=== PATIENT | female | born 1950 | race Caucasian/White ===

== ENCOUNTER 2021-12-10 11:07 | Emergency (ER) | payer OTHER, SELFPAY ==
[2021-12-10] VITALS (10 sets, daily range): BP systolic 106–160; BP diastolic 71–112; PULSE 51–79; RESP 14–22; TEMP 36.6–36.8; O2SAT 93–97; BMI 26.1
--- NOTE | ~2021-12-10 | CT_ITS ---
EXAMINATION: CT OF THE HEAD WITHOUT CONTRAST CT OF THE CERVICAL SPINE WITHOUT CONTRAST CLINICAL INFORMATION: Pain status post fall. Question loss of consciousness. COMPARISON: None. TECHNIQUE: Contiguous axial imaging was performed from the skullbase to vertex without intravenous administration of contrast. Coronal reformations of the head were obtained. Contiguous axial imaging was then performed from the skull base down to the thoracic inlet. Coronal and sagittal reformations of the cervical spine were obtained. This CT examination was performed using dose optimization techniques as appropriate, variously including the following: *Automated exposure control *Adjustment of mA and/or kV according to patient size (this includes techniques or standardized protocols for targeted exams where dose is matched to indication/reason for exam; i.e. extremities or head) *Use of iterative reconstruction technique DLP: 1036.28 mGy-cm. FINDINGS: CT scan of the head: There is no evidence of acute intracranial hemorrhage or territorial infarction. No abnormal mass-effect or midline shift is seen. Piña to white matter differentiation is well preserved. No extra-axial fluid collections are identified. The ventricles and sulci are mildly enlarged, suggesting involutional changes. There is moderate periventricular and deep white matter low-attenuation seen, consistent with ischemic small vessel disease. The osseous structures and soft tissues are normal. Partial opacification of the posterior ethmoid air cells bilaterally noted. The mastoid air cells and visualized portions of the paranasal sinuses are well-aerated. CT scan of the cervical spine: Normal alignment is seen with no evidence of acute fracture or dislocation. Craniocervical junction and atlantoaxial articulations are intact. Prevertebral soft tissues are normal in thickness. There is moderate degenerative disc disease in the mid and lower cervical spine with disc space narrowing, vertebral endplate spurring, including posterior disc osteophyte complexes and some small cystic changes seen from C4-C5 down to C6-C7. There is minimal grade 1 anterolisthesis of C3-C4 on C5, retrolisthesis of C5 on C6, and anterolisthesis of C7 on T1, likely related to patient positioning and degenerative changes. There is moderate facet arthropathy throughout the cervical spine. Mild biapical lung parenchymal scarring noted. The included soft tissues of the neck and lung apices are otherwise unremarkable. CT/CT cervical spine wo con IMPRESSION: CT scan of the head: -No acute intracranial pathology. -Involutional changes and findings of ischemic small vessel disease noted. -Partial opacification of the ethmoid sinuses. CT scan of the cervical spine: -No evidence of cervical spine fracture or malalignment. -Prominent degenerative disc disease and facet arthropathy, most prominent throughout the mid and lower cervical spine.
--- NOTE | ~2021-12-10 | XR_ITS ---
EXAMINATION: PORTABLE CHEST 1 VIEW CLINICAL INFORMATION: fall, ?syncope . COMPARISON: No recent pertinent prior studies are available for comparison. TECHNIQUE: Portable frontal view of the chest was obtained. FINDINGS: Lungs are hypoexpanded. No focal infiltrate, effusion, edema, or pneumothorax. Central vascular prominence within normal limits for this degree of hypoexpansion. Cardiac silhouette within normal limits for size with mild tortuosity to the aorta. Degenerative changes in the spine and visualized shoulders. XR/XR chest 1V IMPRESSION: Hypoexpanded with chronic appearing changes. No definitive focal airspace disease.
--- NOTE | ~2021-12-10 | XR_ITS ---
EXAMINATION: XR SHOULDER, RIGHT CLINICAL INFORMATION: Fall pain COMPARISON: None TECHNIQUE: Frontal and scapular Y view of the right shoulder. FINDINGS: Anterior subglenoid dislocation of the humeral head. Scapula, clavicle and included ribs are intact. Exam limited by technique. XR/XR shoulder RT min 2V IMPRESSION: Anterior subglenoid dislocation of the shoulder.
--- NOTE | ~2021-12-10 | XR_ITS ---
EXAMINATION: XR SHOULDER, RIGHT CLINICAL INFORMATION: Check placement COMPARISON: Right shoulder films earlier today TECHNIQUE: Two views of the right shoulder. FINDINGS: Humeral head is now relocated into the right glenoid fossa. Degenerative changes are seen but I do not appreciate any acute fracture or dislocation. XR/XR shoulder RT min 2V IMPRESSION: Relocation of the previously dislocated right shoulder. Degenerative changes.
--- NOTE | 2021-12-10 11:19 | ED_ITS ---
HPI - Fall General Chief Complaint: Fall Stated Complaint: R ARM PAIN S/P FALL SATURDAY PER SNF Time Seen by Provider: 12/10/21 11:13 Source: EMS Mode of arrival: EMS Limitations: other (patient is deaf-reads lips/uses sign language, has dementia) History of Present Illness HPI Narrative: 71yo female with a past medical history of anemia, anxiety, depression, bipolar disorder, DM, HLD, HTN, hypothyroidism, dementia, seizures, hearing loss (uses sign language, reads lips) here after a fall. Patient was found at the residential by staff on on her knees after an unwitnessed fall. Patient unable to provide HPI. Patient has been at baseline per staff. Today she started c/o right arm pain prompting her ER visit. No other complaints. Related Data Previous Rx's Medication Instructions Recorded cefuroxime axetil 250 mg tablet 250 mg PO BID #14 tab 12/10/21 Allergies Allergy/AdvReac Type Severity Reaction Status Date / Time Unable to Assess Allergy Verified 12/10/21 11:26 Review of Systems Review of Systems: Yes all other systems are reviewed and are negative Constitutional: Constitutional: Reports no additional constitutional complaints, Denies body ache(s), Denies chills, Denies fever(s), Denies headache(s) and Denies weakness Eyes: Eyes: Reports no additional eye complaints and Denies change in vision ENT: Reports system reviewed and no additional complaints, except as do cumented, Denies dizziness, Denies headache(s), Denies nasal congestion, Denies nasal discharge and Denies neck pain Cardiovascular: Cardiovascular: Reports no additional cardiovascular complaints, Denies chest pain, Denies leg edema and Denies dyspnea Respiratory: Respiratory: Reports no additional respiratory complaints, Denies cough and Denies dyspnea Gastrointestinal: Gastrointestinal: Reports no additional gastrointestinal complaints, Denies abdominal pain, Denies diarrhea, Denies nausea and Denies vomiting Genitourinary: Genitourinary: Reports no additional female genitourinary complaints and Denies urinary incontinence Musculoskeletal: Musculoskeletal: Reports no additional musculoskeletal complaints, Denies back pain, Reports arthralgias, Denies joint swelling, Reports limited range of motion, Denies neck pain, Denies numbness and Denies tingling Integumentary/Breasts: Skin/Breast: Reports system reviewed and no additional complaints, except as docu and Denies rash Neurologic: Reports system reviewed and no additional complaints, except as documented, Denies Abnormal speech present, Reports confusion, Denies dizziness, Denies headache(s), Denies numbness, Denies tingling and Denies weakness Psychiatric: Psychiatric: Reports confusion [facility] Past Medical History Attestation statement: The following information was validated with the patient. Source: old records reviewed and nursing notes reviewed Medical History Anemia Anxiety Bipolar 1 disorder COPD (chronic obstructive pulmonary disease) COVID-19 DDD (degenerative disc disease), lumbar DM (diabetes mellitus) Dyslipidemia GERD (gastroesophageal reflux disease) Hearing loss HTN (hypertension) Hypothyroid Major depressive disorder Seizure disorder TIA (transient ischemic attack) Vascular dementia Surgical History H/O right nephrectomy H/O: hysterectomy History of appendectomy Social History Social History Advance Directives: Yes Advance Directives Information Provided: No Advance Directives on File: No Physical Exam Vital Signs: Vital Signs: Last Vital Signs Temp 98.2 F 12/10/21 13:10 Pulse 79 12/10/21 18:52 Resp 22 H 12/10/21 18:52 BP 144/79 H 12/10/21 18:52 Pulse Ox 93 12/10/21 18:52 Oxygen Flow Rate 2 12/10/21 15:56 BMI result Body Mass Index 26.1 Const: General: cooperative, healthy appearing, comfortable, no acute distress and confusion Orientation/consciousness: confusion Limitations: altered mental status HEENT: Head: Yes normal to inspection Ears: hearing grossly normal bilaterally General nose exam: Normal external nose present Face and sinus: Yes normal facial exam Mouth: Normal oral and palatal mucosa present Throat: Yes posterior oropharynx normal Eyes: General: appearance normal, both eyes and all related structures Pupils: Equal, round and reactive pupils present Neck: Neck: Yes normal visual inspection, Yes full ROM, Yes no lymphadenopathy and Yes no meningeal signs Chest: Chest palpation & inspection: normal inspection of the chest Resp: Effort & Inspection: normal respiratory effort Auscultation: clear to auscultation bilaterally Cardio: Rate: regular rate Rhythm: regular rhythm Peripheral pulses: Peripheral pulses 2+ throughout GI: Inspection: Yes normal to inspection Palpation (GI): Soft to palpation and nontender Auscultation: normal bowel sounds Back/Spine/Pelvis: Thoracic/Lumbar Spine: thoracic and lumbar spine normal to inspection Skin: General skin exam: no rashes or lesions noted Neuro: General: no meningeal signs, no focal motor deficits, normal sensation to monofilament, confusion and Unable to assess gait Cranial nerves: Yes Equal, round and reactive pupils present Speech: No Abnormal speech present Gait exam (Neuro): Unable to assess gait Motor exam (neuro): 5/5 motor strength present throughout Sensory Exam: Normal double simultaneous stimulation for sensation Extrem: Other: +deformity, swelling, tenderness to right shoulder +radial/axially/ulnar pulse General: Yes normal to inspection Course Course Course Narrative: 71Year old female coming from a residential with right shoulder pain after a fall which occurred on . Per nursing staff they are unsure why the patient fell. I spoke to the healthcare proxy her sister Ilana. She tells me the patient does tend to lose her balance and fall quite often. She is also unsure why the patient fell. Therefore due to unknown mechanism injury will check labs, EKG, CT head and neck. Patient has a deformity with swelling and tenderness to the right shoulder. Question proximal humeral fracture versus shoulder dislocation. Will obtain x-ray Reevaluation(s) Reevaluation #1: X-ray shows right shoulder dislocation. Will attempt manual reduction the bedside. If unsuccessful. Patient will require conscious sedation. I spoke to the healthcare proxy (Ilana)who was agreeable to this Time: 11:45 Reevaluation #2: CT head and neck are negative. See procedure note for conscious sedation. Patient healthcare proxy was previously consented. This was communicated through the vault mechanic to the patient at the bedside. Post reduction films ordered. Patient placed in a sling Time: 15:30 Reevaluation #3: UA is consistent with a UTI. Post reduction x-ray show satisfactory reduction of the shoulder dislocation. Will send patient back to [facility] on oral antibiotics for UTI in his sling for her shoulder dislocation. Time: 18:57 Procedures Procedure Narrative Procedure Narrative: Sling Orthopedic Joint Reduction Joint #1: Time Out Performed: Yes Side: right Joint Reduction Location: shoulder Analgesia: procedural sedation and hematoma block (attempted first with 20ml 2% lidocaine) Local Anesthesia: lidocaine 2% Amount of anesthesic used (mL): 20 Shoulder Technique Used (if applicable): external rotation Technique used: direct manipulation Post-reduction neuro exam: intact Post-reduction vascular: intact Post Reduction X-Ray Obtained: Yes Post Reduction X-Ray Results: reduced Splint Applied: Yes Patient Tolerated Procedure: well Additional Comments: Sling applied MDM - Fall Medical Records Attestation: I reviewed the patient's medical records. Lab Data Attestation: I reviewed the patient's lab results. Result diagrams: 12/10/21 11:54 12/10/21 11:54 Labs: Lab Results 12/10/21 12/10/21 12/10/21 Range/Units 11:54 11:54 11:54 WBC 11.4 H (4.8-10.8) X10*3/uL RBC 4.09 L (4.20-5.50) X10*6/uL Hgb 11.9 L (12.0-16.0) g/dl Hct 35.3 L (37.0-47.0) % MCV 86.3 (80.0-98.0) fL MCH 29.1 (27.0-33.0) pg MCHC 33.7 (31.0-35.0) g/dl RDW 14.3 (11.0-16.0) % Plt Count 215 (160-400) X10*3/uL MPV 10.7 (9.4-12.3) fL Immature Gran % (Auto) 0.4 (0.0-0.4) % Neut % (Auto) 80.7 H (45-73) % Lymph % (Auto) 8.3 L (20-40) % [place] % (Auto) 10.0 (2-11) % Eos % (Auto) 0.2 (0-4) % Baso % (Auto) 0.4 (0-2) % Lymph # (Auto) 1.0 L (1.2-4.9) X10*3/uL [place] # (Auto) 1.1 (0.1-1.2) X10*3/uL Eos # (Auto) 0.0 (0.0-0.4) X10*3/uL Baso # (Auto) 0.0 (0.0-0.2) X10*3/uL Abs Immat Gran (auto) 0.04 H (0.00-0.03) X10*3/uL Absolute Neuts (auto) 9.2 H (2.0-8.3) x10*3/uL Absolute Nucleated RBC 0.000 (0.0-0.012) X10*3/uL Nucleated RBC % (auto) 0.0 (0.0-0.2) /100WBC Sodium 138 (135-145) mmol/L Potassium 3.4 (3.3-5.1) mmol/L Chloride 97 (96-108) mmol/L Carbon Dioxide 26 (22-29) mmol/L Anion Gap 18 (12-20) BUN 19 H (9-16) mg/dL Creatinine 1.21 (0.5-1.4) mg/dL Estim Creat Clear Calc 41.2 Estimated GFR 44 Random Glucose 213 H (60-115) mg/dL Calcium 10.1 (8.4-10.2) mg/dL Magnesium 1.8 (1.6-2.6) mg/dL Troponin I High Sens 4.5 (<3.5-17.0) ng/L Urine Color Urine Appearance Urine pH (5.0-8.0) Ur Specific [place] (1.005-1.025) Urine Protein (NEG-TRACE) MG/DL Urine Glucose (UA) (NEG) MG/DL Urine Ketones (NEG) MG/DL Urine Blood (NEG) Urine Nitrite (NEG) Ur Leukocyte Esterase (NEG) Urine RBC (0) /HPF Urine WBC (0-4) /HPF Urine WBC Clumps Ur Squamous Epith Cells /LPF Urine Bacteria /LPF Hyaline Casts /LPF Urine Mucus /LPF 12/10/21 Range/Units 17:31 WBC (4.8-10.8) X10*3/uL RBC (4.20-5.50) X10*6/uL Hgb (12.0-16.0) g/dl Hct (37.0-47.0) % MCV (80.0-98.0) fL MCH (27.0-33.0) pg MCHC (31.0-35.0) g/dl RDW (11.0-16.0) % Plt Count (160-400) X10*3/uL MPV (9.4-12.3) fL Immature Gran % (Auto) (0.0-0.4) % Neut % (Auto) (45-73) % Lymph % (Auto) (20-40) % [place] % (Auto) (2-11) % Eos % (Auto) (0-4) % Baso % (Auto) (0-2) % Lymph # (Auto) (1.2-4.9) X10*3/uL [place] # (Auto) (0.1-1.2) X10*3/uL Eos # (Auto) (0.0-0.4) X10*3/uL Baso # (Auto) (0.0-0.2) X10*3/uL Abs Immat Gran (auto) (0.00-0.03) X10*3/uL Absolute Neuts (auto) (2.0-8.3) x10*3/uL Absolute Nucleated RBC (0.0-0.012) X10*3/uL Nucleated RBC % (auto) (0.0-0.2) /100WBC Sodium (135-145) mmol/L Potassium (3.3-5.1) mmol/L Chloride (96-108) mmol/L Carbon Dioxide (22-29) mmol/L Anion Gap (12-20) BUN (9-16) mg/dL Creatinine (0.5-1.4) mg/dL Estim Creat Clear Calc Estimated GFR Random Glucose (60-115) mg/dL Calcium (8.4-10.2) mg/dL Magnesium (1.6-2.6) mg/dL Troponin I High Sens (<3.5-17.0) ng/L Urine Color YELLOW Urine Appearance CLEAR Urine pH 6.0 (5.0-8.0) Ur Specific [place] 1.020 (1.005-1.025) Urine Protein 1+ H (NEG-TRACE) MG/DL Urine Glucose (UA) NEG (NEG) MG/DL Urine Ketones NEG (NEG) MG/DL Urine Blood TRACE (NEG) Urine Nitrite NEG (NEG) Ur Leukocyte Esterase 2+ H (NEG) Urine RBC 1-4 (0) /HPF Urine WBC 15-29 H (0-4) /HPF Urine WBC Clumps NOTED Ur Squamous Epith Cells 2+ /LPF Urine Bacteria 1+ /LPF Hyaline Casts 0-2 /LPF Urine Mucus TRACE /LPF Imaging Data shoulder x-ray: Attestation: I personally reviewed and interpreted this imaging study as follows: Radiologist's impression: FINDINGS: Anterior subglenoid dislocation of the humeral head. Scapula, clavicle and included ribs are intact. Exam limited by technique.? XR/XR shoulder RT min 2V IMPRESSION: Anterior subglenoid dislocation of the shoulder. Ct head/cervical spine: Attestation: I personally reviewed and interpreted this imaging study as follows: Radiologist's impression: FINDINGS: CT scan of the head: There is no evidence of acute intracranial hemorrhage or territorial infarction. No abnormal mass-effect or midline shift is seen. Piña to white matter differentiation is well preserved. No extra-axial fluid collections are identified. The ventricles and sulci are mildly enlarged, suggesting involutional changes. There is moderate periventricular and deep white matter low-attenuation seen, consistent with ischemic small vessel disease. The osseous structures and soft tissues are normal. Partial opacification of the posterior ethmoid air cells bilaterally noted. The mastoid air cells and visualized portions of the paranasal sinuses are well-aerated. CT scan of the cervical spine: Normal alignment is seen with no evidence of acute fracture or dislocation. Craniocervical junction and atlantoaxial articulations are intact. Prevertebral soft tissues are normal in thickness. There is moderate degenerative disc disease in the mid and lower cervical spine with disc space narrowing, vertebral endplate spurring, including posterior disc osteophyte complexes and some small cystic changes seen from C4-C5 down to C6-C7. There is minimal grade 1 anterolisthesis of C3-C4 on C5, retrolisthesis of C5 on C6, and anterolisthesis of C7 on T1, likely related to patient positioning and degenerative changes. There is moderate facet arthropathy throughout the cervical spine. Mild biapical lung parenchymal scarring noted. The included soft tissues of the neck and lung apices are otherwise unremarkable. ? CT/CT cervical spine wo con IMPRESSION: CT scan of the head: -No acute intracranial pathology. -Involutional changes and findings of ischemic small vessel disease noted. -Partial opacification of the ethmoid sinuses. ? CT scan of the cervical spine: -No evidence of cervical spine fracture or malalignment. -Prominent degenerative disc disease and facet arthropathy, most prominent throughout the mid and lower cervical spine. ? shoulder xray-post reduction: Attestation: I personally reviewed and interpreted this imaging study as follows: Radiologist's impression: FINDINGS: Humeral head is now relocated into the right glenoid fossa. Degenerative changes are seen but I do not appreciate any acute fracture or dislocation.? XR/XR shoulder RT min 2V IMPRESSION: Relocation of the previously dislocated right shoulder. Degenerative changes. Chest x-ray: Attestation: I personally reviewed and interpreted this imaging study as follows: Radiologist's impression: [address] [address] XRay Report Signed Patient: Lazara Rome MR#: [id number] : 1950 Acct:[id number] Age/Sex: 71 / F ADM Date: 12/10/21 Loc: HO.ED Attending Dr: Ordering Physician: Rosalinda Carreon NP Date of Service: 12/10/21 Procedure(s): XR chest 1V Accession Number(s): [id number] cc: Rosalinda Carreon NP~ EXAMINATION: PORTABLE CHEST 1 VIEW CLINICAL INFORMATION: fall, ?syncope . COMPARISON: No recent pertinent prior studies are available for comparison. TECHNIQUE: Portable frontal view of the chest was obtained. FINDINGS: Lungs are hypoexpanded. No focal infiltrate, effusion, edema, or pneumothorax. Central vascular prominence within normal limits for this degree of hypoexpansion. Cardiac silhouette within normal limits for size with mild tortuosity to the aorta. Degenerative changes in the spine and visualized shoulders. XR/XR chest 1V IMPRESSION: Hypoexpanded with chronic appearing changes. No definitive focal airspace disease. ? ECG Data Attestation: I personally reviewed and interpreted this ECG as follows: ECG interpretation date: 12/10/21 ECG interpretation time: 12:49 Interpretation: SB with 1st degree HB, normal qrs, normal qt Critical Care Time Critical Care Time Critical Care Time: Yes Total Critical Care Time: 60 Attestation: Reduction at the bedside, discussion with family and patient multiple times Discharge Plan Discharge Clinical Impression: Dislocation of shoulder region, Acute UTI Patient Disposition: er [facility] Instructions: Shoulder Dislocation (ED), Urinary Tract Infection in Older Adults (ED) Additional Instructions: Sling during the day Tylenol for pain Patient given first dose of antibiotic in the emergency department Prescriptions: New cefuroxime axetil 250 mg tablet 250 mg PO BID Qty: 14 0RF Referrals: Rober Diane MD [Physician] - 1 week Hortencia Johnson MD [Primary Care Provider] - 5 days
--- NOTE | 2021-12-10 11:30 | ECG_ITS ---
Test Reason : GENERAL MEDICAL Blood Pressure : / mmHG Vent. Rate : 052 BPM Atrial Rate : 052 BPM P-R Int : 228 ms QRS Dur : 070 ms QT Int : 484 ms P-R-T Axes : 006 -06 060 degrees QTc Int : 450 ms Sinus bradycardia with 1st degree A-V block Minimal voltage criteria for LVH, may be normal variant ( R in aVL ) Nonspecific T wave abnormality Abnormal ECG No previous ECGs available Referred By: Rosalinda Carreon Electronically Signed By:Laci Thomson
[2021-12-10 11:58] LABS: MANUAL DIFF FLAG NO
[2021-12-10 12:01] LABS: Basophils Percent Auto 0.4 % (0-2); Eosinophils Percent Auto 0.2 % (0-4); Hematocrit 35.3 % (37.0-47.0); Hemoglobin 11.9 g/dl (12.0-16.0); Imm Gran Abs Auto 0.04 X10*3/uL (0.00-0.03); Imm Gran Pct Auto 0.4 % (0.0-0.4); Lymphocytes Percent Auto 8.3 % (20-40); Mean Corpuscular HGB Conc 33.7 g/dl (31.0-35.0); Mean Corpuscular Hemoglobin 29.1 pg (27.0-33.0); Mean Corpuscular Volume 86.3 fL (80.0-98.0); Mean Platelet Volume 10.7 fL (9.4-12.3); Monocytes Absolute Auto 1.1 X10*3/uL (0.1-1.2); Neutrophils Absolute Auto 9.2 x10*3/uL (2.0-8.3); Neutrophils Percent Auto 80.7 % (45-73); Platelet Count 215 X10*3/uL (160-400); Red Blood Count 4.09 X10*6/uL (4.20-5.50); Red Cell Distribution Width 14.3 % (11.0-16.0); White Blood Count 11.4 X10*3/uL (4.8-10.8)
[2021-12-10 12:16] LABS: Anion Gap 18 (12-20); Blood Urea Nitrogen 19 mg/dL (9-16); Calcium 10.1 mg/dL (8.4-10.2); Carbon Dioxide 26 mmol/L (22-29); Chloride 97 mmol/L (96-108); Creatinine Clr Calc Pharmacy 41.2; Estimated Glomerular Filt Rate 44; Glucose Random 213 mg/dL (60-115); Magnesium 1.8 mg/dL (1.6-2.6); Potassium 3.4 mmol/L (3.3-5.1); Sodium 138 mmol/L (135-145)
[2021-12-10 12:20] LABS: Troponin-I High Sensitivity 4.5 ng/L (<3.5-17.0)
[2021-12-10] MEDS: propofoL 200 MG/20 ML VIAL 60 MG IVPUSH (16:01)
[2021-12-10 17:37] LABS: Appearance Urine CLEAR; Color Urine YELLOW; Glucose Urine UA NEG (NEG); Leukocyte Esterase Urine 2+ (NEG); Nitrite Urine NEG (NEG); UACC Culture Trigger YES; Urine Blood TRACE (NEG); Urine Ketones NEG (NEG); Urine Protein 1+ MG/DL (NEG-TRACE)
[2021-12-10 17:53] LABS: Bacteria Urine 1+ /LPF; Hyaline Casts Urine 0-2 /LPF; Mucus Urine TRACE /LPF; Squamous Epithelial Cell Urine 2+ /LPF; WBC Clumps Urine NOTED
== END 2021-12-10 20:59 | disposition skilled nursing facility (03) ==
PROVIDERS: Nurse Practitioner Family; Emergency Provider Emergency Medicine; PCP Internal Medicine
DX: S43.004A Unspecified dislocation of right shoulder joint, initial encounter (principal); M79.601 Pain in right arm; M54.2 Cervicalgia; R07.89 Other chest pain; F33.1 Major depressive disorder, recurrent, moderate; I10 Essential (primary) hypertension; W01.0XXA Fall on same level from slipping, tripping and stumbling without subsequent striking against object, initial encounter; Y93.9 Activity, unspecified; Y92.129 Unspecified place in nursing home as the place of occurrence of the external cause; Y99.9 Unspecified external cause status; Z79.899 Other long term (current) drug therapy
CPT/HCPCS: 23655; 36415; 70450; 71045; 72125; 73030; 80048; 81001; 83735; 84484; 85025; 87086; 93005; 96374; 99284; 99291

== ENCOUNTER 2021-12-15 14:45 | Inpatient (IN) | payer OTHER, SELFPAY ==
--- NOTE | ~2021-12-15 | CT_ITS ---
EXAMINATION: CT HEAD/BRAIN WITHOUT CONTRAST CLINICAL INFORMATION: Falls COMPARISON: December 10, 2021 TECHNIQUE: CT scanning from base of skull to vertex performed without IV contrast administration. This CT examination was performed using dose optimization techniques as appropriate, variously including the following: *Automated exposure control *Adjustment of mA and/or kV according to patient size (this includes techniques or standardized protocols for targeted exams where dose is matched to indication/reason for exam; i.e. extremities or head) *Use of iterative reconstruction technique DLP: 669 mGy-cm. FINDINGS: The ventricles, sulci, and cisterns appear unremarkable. No abnormal extra-axial fluid collection or intracranial hemorrhage is seen. No significant mass effect or midline structure shift is evident. There is a large amount of periventricular white matter low density present consistent with microangiopathy. Visualized paranasal sinuses and mastoid air cells unremarkable. CT/CT head/brain wo con IMPRESSION: No acute intracranial abnormality. 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 EXAMINATION: CT OF THE CERVICAL SPINE CLINICAL INFORMATION: Fall COMPARISON: December 10, 2021. TECHNIQUE: Thin helical images with sagittal and coronal reformats. This CT examination was performed using dose optimization techniques as appropriate, variously including the following: *Automated exposure control *Adjustment of mA and/or kV according to patient size (this includes techniques or standardized protocols for targeted exams where dose is matched to indication/reason for exam; i.e. extremities or head) *Use of iterative reconstruction technique DOSE: DLP 369 mGy-cm FINDINGS: No abnormal prevertebral soft tissue swelling is seen. Paraspinal muscle fat planes are maintained. No acute cervical spine fracture is noted. There is cervical spondylosis with facet arthropathy bilaterally C3-C7. Temporomandibular joints appear unremarkable. Pterygoid plates intact. Visualized paranasal sinuses and mastoid air cells unremarkable. The lung apices are clear. IMPRESSION: Cervical spondylosis without acute fracture identified.
--- NOTE | ~2021-12-15 | XR_ITS ---
EXAMINATION: XR CHEST CLINICAL INFORMATION: Falls COMPARISON: December 10, 2021 TECHNIQUE: AP portable view of the chest was obtained. FINDINGS: No significant abnormality is noted involving the heart, lungs, mediastinum, bony thorax or soft tissues. XR/XR chest 1V IMPRESSION: No acute disease.
--- NOTE | ~2021-12-15 | CT_ITS ---
EXAMINATION: CT HEAD/BRAIN WITHOUT CONTRAST CLINICAL INFORMATION: Falls COMPARISON: December 10, 2021 TECHNIQUE: CT scanning from base of skull to vertex performed without IV contrast administration. This CT examination was performed using dose optimization techniques as appropriate, variously including the following: *Automated exposure control *Adjustment of mA and/or kV according to patient size (this includes techniques or standardized protocols for targeted exams where dose is matched to indication/reason for exam; i.e. extremities or head) *Use of iterative reconstruction technique DLP: 669 mGy-cm. FINDINGS: The ventricles, sulci, and cisterns appear unremarkable. No abnormal extra-axial fluid collection or intracranial hemorrhage is seen. No significant mass effect or midline structure shift is evident. There is a large amount of periventricular white matter low density present consistent with microangiopathy. Visualized paranasal sinuses and mastoid air cells unremarkable. CT/CT cervical spine wo con IMPRESSION: No acute intracranial abnormality. 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 EXAMINATION: CT OF THE CERVICAL SPINE CLINICAL INFORMATION: Fall COMPARISON: December 10, 2021. TECHNIQUE: Thin helical images with sagittal and coronal reformats. This CT examination was performed using dose optimization techniques as appropriate, variously including the following: *Automated exposure control *Adjustment of mA and/or kV according to patient size (this includes techniques or standardized protocols for targeted exams where dose is matched to indication/reason for exam; i.e. extremities or head) *Use of iterative reconstruction technique DOSE: DLP 369 mGy-cm FINDINGS: No abnormal prevertebral soft tissue swelling is seen. Paraspinal muscle fat planes are maintained. No acute cervical spine fracture is noted. There is cervical spondylosis with facet arthropathy bilaterally C3-C7. Temporomandibular joints appear unremarkable. Pterygoid plates intact. Visualized paranasal sinuses and mastoid air cells unremarkable. The lung apices are clear. IMPRESSION: Cervical spondylosis without acute fracture identified.
--- NOTE | 2021-12-15 14:54 | ED_ITS ---
HPI - Fall General Chief Complaint: Fall Stated Complaint: fall, neck/head pain Time Seen by Provider: 12/15/21 14:53 Source: patient Mode of arrival: EMS Limitations: other (vascular dementia) History of Present Illness HPI Narrative: seen 12/10 for uwitnessed fall underwent conscious sedation for R shoulder dislocation sent back to [facility] on cefuroxime 250mg BID today staff reportedly saw her standing up went to use walker fell backwards and hit her head - patient states she doesn't remember the events. Notes show her BP has been lower and they have been lowering her metoprolol to 25mg BID from 100 m etoprolol BID and also her losartan 50mg/HCTZ 12.5mg - a note states her BP has been low and they haven't been able to get a standing BP on her. Frequent falls is listed over the past couple of weeks. Not always compliant with care is what our RN was told over the phone by RN at facility MD complaint: fall Onset (ago): minute(s) Fall from: standing (with walker) Fall witnessed: yes, by living facility staff Place fall occurred: [facility] Loss of consciousness: none Prolonged down time: no Symptoms prior to fall: other (patient states she doesn't remember) Context: other (stood up and fell backwards) Location of injury: head Severity: mild Quality: aching Associated symptoms (after fall): headache Related Data Previous Rx's Medication Instructions Recorded cefuroxime axetil 250 mg tablet 250 mg PO BID #14 tab 12/10/21 Allergies Allergy/AdvReac Type Severity Reaction Status Date / Time No Known Allergies Allergy Verified 12/15/21 15:20 Review of Systems Review of Systems: ROS unable to be obtained due to altered mental status [facility] Past Medical History Source: old records reviewed Medical History Anemia Anxiety Bipolar 1 disorder COPD (chronic obstructive pulmonary disease) COVID-19 DDD (degenerative disc disease), lumbar DM (diabetes mellitus) Dyslipidemia GERD (gastroesophageal reflux disease) Hearing loss HTN (hypertension) Hypothyroid Major depressive disorder Seizure disorder TIA (transient ischemic attack) Vascular dementia Surgical History H/O right nephrectomy H/O: hysterectomy History of appendectomy Social History Social History Patient Tobacco Use Status: Tobacco use Unknown Advance Directives: No Advance Directives Information Provided: No Physical Exam Vital Signs: Vital Signs: Last Vital Signs Temp 97.5 F 12/15/21 15:09 Pulse 58 12/15/21 15:09 Resp 16 12/15/21 15:09 BP 124/70 12/15/21 15:09 Pulse Ox 95 12/15/21 15:09 BMI result Body Mass Index 27.3 Appearance: Alert. Oriented X1. No acute distress. Eyes: Pupils equal, round and reactive to light. ENT: Pharynx normal. Neck: Normal inspection. Neck supple. CVS: Normal heart rate and rhythm. Pulses normal. Respiratory: No respiratory distress. Breath sounds normal. Abdomen: Soft and nontender. Skin: Skin warm and dry. Normal skin color. Normal skin turgor. Extremities: No lower extremity edema. no pain in hips with ROM testing Neuro: Oriented X 1. No motor deficit. No sensory deficit. Course Course Course Narrative: signed out to Dr. Shukla pending workup MDM - Fall MDM Narrative Medical decision making narrative: 71 yo female with hx of vascular dementia, bipolar, HTN, HLD, DM, hypothyroidism, seizures, deaf - reads lips here with frequent falls comes in with c/o another fall today stood up and fell hitting head and fell backwards. At this time will need CT head/cervical spine. Denies injuries anywhere. The notes from SNF report low BPs ?orthostatic hypotension. At this time EKG, labs, troponin, imaging ordered. Dispo per results and findings. ECG Data Attestation: I personally reviewed and interpreted this ECG as follows: ECG interpretation date: 12/15/21 ECG interpretation time: 15:51 Interpretation: Rate:56 Rhythm: sinus bradycardia 1st degree AVB Tracy: left Normal P waves. Normal VAIBHAV. Normal QRS complex. ST T wave : nonspecific I and aVL, no DARIO qTC: normal prior studies: no acute ischemia The study has been interpreted contemporaneously by me. . Discharge Plan Discharge Clinical Impression: Falls frequently Patient Disposition: Still a Patient Prescriptions: No Action cefuroxime axetil 250 mg tablet 250 mg PO BID Qty: 14 0RF
--- NOTE | 2021-12-15 15:08 | ECG_ITS ---
Test Reason : FALL Blood Pressure : / mmHG Vent. Rate : 056 BPM Atrial Rate : 056 BPM P-R Int : 256 ms QRS Dur : 072 ms QT Int : 452 ms P-R-T Axes : 028 -04 096 degrees QTc Int : 436 ms Sinus bradycardia with 1st degree A-V block Abnormal QRS-T angle, consider primary T wave abnormality Abnormal ECG When compared with ECG of 10-DEC-2021 12:49, No significant change was found Referred By: Marely Angelo Electronically Signed By:Laci Thomson
[2021-12-15 15:09] VITALS: BP 124/70; PULSE 58; RESP 16; TEMP 36.4; O2SAT 95
--- NOTE | 2021-12-15 15:09 | PC.NURSE ---
this rn calling 3rd floor [facility] in [place]. tereza RN states that patient doesn't sign but can write and read lips. still has difficulty communicating d/t dementia. Duy RN states baseline is non-verbal, ambulates with walker, difficulty complying, no unilat deficit or gaze. fall today was backwards, head strike to floor. no difficulty eating/drinking. takes pills whole. increased falls lately, aprox every other day. last BP was 106/64
[2021-12-15 15:21] VITALS: BP 110/72; PULSE 60; BMI 27.3
[2021-12-15] MEDS: 0.9 % Sodium Chloride 1,000 ML 999 ML IVCONT ×2 (16:19→20:04)
[2021-12-15 16:29] LABS: MANUAL DIFF FLAG NO
[2021-12-15 16:32] LABS: Basophils Absolute Auto 0.1 X10*3/uL (0.0-0.2); Basophils Percent Auto 0.9 % (0-2); Eosinophils Absolute Auto 0.2 X10*3/uL (0.0-0.4); Eosinophils Percent Auto 2.3 % (0-4); Hematocrit 31.9 % (37.0-47.0); Hemoglobin 10.4 g/dl (12.0-16.0); Imm Gran Abs Auto 0.03 X10*3/uL (0.00-0.03); Imm Gran Pct Auto 0.3 % (0.0-0.4); Lymphocytes Absolute Auto 1.4 X10*3/uL (1.2-4.9); Lymphocytes Percent Auto 15.2 % (20-40); Mean Corpuscular HGB Conc 32.6 g/dl (31.0-35.0); Mean Corpuscular Hemoglobin 29.1 pg (27.0-33.0); Mean Corpuscular Volume 89.4 fL (80.0-98.0); Mean Platelet Volume 10.2 fL (9.4-12.3); Monocytes Absolute Auto 0.6 X10*3/uL (0.1-1.2); Monocytes Percent Auto 6.8 % (2-11); Neutrophils Percent Auto 74.5 % (45-73); Platelet Count 249 X10*3/uL (160-400); Red Blood Count 3.57 X10*6/uL (4.20-5.50); Red Cell Distribution Width 14.2 % (11.0-16.0); White Blood Count 9.4 X10*3/uL (4.8-10.8)
[2021-12-15 16:37] LABS: INTERNATIONAL NORM RATIO 1.1 (0.9-1.1); Prothrombin Time 12.3 SEC (9.9-13.0)
[2021-12-15 16:50] LABS: Lactic Acid 3.6 mmol/L (0.5-2.0)
[2021-12-15 16:51] LABS: Alanine Aminotransferase 17 U/L (0-31); Albumin Level 3.8 g/dL (3.5-5.0); Alkaline Phosphatase 75 U/L (39-117); Anion Gap 21 (12-20); Aspartate Amino Transferase 15 U/L (5-31); Bilirubin Direct 0.2 mg/dL (0.0-0.5); Bilirubin Total 0.6 mg/dL (0.0-1.0); Blood Urea Nitrogen 87 mg/dL (9-16); Calcium 9.9 mg/dL (8.4-10.2); Carbon Dioxide 22 mmol/L (22-29); Chloride 103 mmol/L (96-108); Creatinine Clr Calc Pharmacy 24.7; Estimated Glomerular Filt Rate 24; Glucose Random 115 mg/dL (60-115); Lipase 93 U/L (8-78); Magnesium 2.1 mg/dL (1.6-2.6); Potassium 3.7 mmol/L (3.3-5.1); Sodium 142 mmol/L (135-145); Total Protein 6.9 g/dL (6.5-8.0)
[2021-12-15 16:54] LABS: COVID-19 Test Negative (Negative); Valproate 34.5 mcg/mL (50.0-100.0)
[2021-12-15 16:56] LABS: Troponin-I High Sensitivity 4.5 ng/L (<3.5-17.0)
[2021-12-15 17:10] VITALS: BP 101/57; PULSE 61
[2021-12-15 17:12] VITALS: BP 92/53; PULSE 72
[2021-12-15 17:15] VITALS: BP 117/63; PULSE 72
[2021-12-15 18:18] LABS: Reflex Lactate? Lactic Acid Added
--- NOTE | 2021-12-15 18:24 | PC.NURSE ---
sister states that falls have increased since starting depakote. sister is mode anderson [phone] `
[2021-12-15 19:53] LABS: ~Lactic Acid-LAB USE ONLY 1.9 mmol/L (0.5-2.0)
--- NOTE | 2021-12-15 20:00 | PC.NURSE ---
pt standing up in doorway, iv line stretched out cardiac leads stretched. pt was noted to be incontinent of urine,. bed changed , pt given incontinent care. pt continues to be restless and attempting to get OOB. suture gauger used to reorient patient with no effect. pt continues to state I want to go home. md made aware who came in room to also reorient pt with the butt trimmer. pt agreeable to stay
[2021-12-15 20:02] LABS: Anion Gap 17 (12-20); Blood Urea Nitrogen 83 mg/dL (9-16); Calcium 9.2 mg/dL (8.4-10.2); Carbon Dioxide 20 mmol/L (22-29); Chloride 106 mmol/L (96-108); Creatinine Clr Calc Pharmacy 27.9; Estimated Glomerular Filt Rate 27; Glucose Random 104 mg/dL (60-115); Potassium 3.3 mmol/L (3.3-5.1); Sodium 140 mmol/L (135-145)
--- NOTE | 2021-12-15 20:12 | P.HPHOSP_ITS ---
History of Present Illness Date of Service: 12/15/21 Chief Complaint: falls 71-year-old female with a past medical history of hypertension, hyperlipidemia, diabetes, TIA, vascular dementia, GERD, anxiety, depression, bipolar disorder, hypothyroidism, hearing impairment, deaf/mute, continue indicates with sign lang uage, COPD, seizure disorder, history of right nephrectomy, recent history of UTI, recent history of right shoulder dislocation presented to the hospital today with a chief complaint of falls. Patient speaks with sign language. Unable to obtain Burmese sign language over the stratus. Also wrote down to the patient on the paper-which patient unable to answer; patient currently alert awake, lying comfortably in the bed. Moves all extremities equally. Spoke to the RN at bedside Spoke to the patient's sister Freddy; mentioned that patient had an unwitnessed fall in the bathroom and hit her head; denies any loss of consciousness. Mentions that patient was recently presented to the hospital after a fall and had sustained shoulder dislocation which was fixed and noted to have UTI-sent b ack with antibiotics. Reports that patient currently lives in [facility] and was recently started on Depakote for mood disorder/aggression. Denies patient having any fever chills or cough. Denies patient complaining of any pain. Review of all other systems is negative except mentioned above ER course: Per ER team patient exam was nonfocal; CT head and CT cervical spine showed no acute findings; on labs noted to have lactic acidosis-improved with IV fluids; also noted to have CECI with creatinine of 2.0. Likely prerenal. Patient was orthostatic positive. Urinalysis pending Admitted to the hospital for further management [facility] Medical History (Updated 12/15/21 @ 20:12 by Zurdo Montano MD) Anemia Anxiety Bipolar 1 disorder COPD (chronic obstructive pulmonary disease) COVID-19 DDD (degenerative disc disease), lumbar DM (diabetes mellitus) Dyslipidemia GERD (gastroesophageal reflux disease) Hearing loss HTN (hypertension) Hypothyroid Major depressive disorder Seizure disorder TIA (transient ischemic attack) Vascular dementia Pertinent family history: Patient unable to provide information Surgical History H/O right nephrectomy H/O: hysterectomy History of appendectomy Social History Patient Tobacco Use Status: Tobacco use Unknown Advance Directives: No Advance Directives Information Provided: No Meds Allergies Allergy/AdvReac Type Severity Reaction Status Date / Time No Known Allergies Allergy Verified 12/15/21 15:20 Active Medications: Current Medications Sodium Chloride (Ns) 1,000 mls @ 999 mls/hr IVCONT .Q1H1M ONE Stop: 12/15/21 21:04 Home Medications Medication Instructions Recorded Confirmed Last Taken Type cholecalciferol (vitamin D3) 1,250 1,250 mcg PO QMONTH 12/15/21 12/15/21 12/06/21 History mcg (50,000 unit) capsule divalproex 125 mg capsule,delayed 125 mg PO BID 12/15/21 12/15/21 12/15/21 History release sprinkle divalproex 125 mg capsule,delayed 375 mg PO BEDTIME 12/15/21 12/15/21 12/14/21 History release sprinkle ferrous sulfate 325 mg (65 mg 1 tab PO Q2D 12/15/21 12/15/21 12/14/21 History iron) tablet fluticasone propionate 44 2 puff INHALATION BID 12/15/21 12/15/21 12/15/21 History mcg/actuation HFA aerosol inhaler (Flovent HFA) fluticasone propionate 50 1 spray INTRANASAL BID 12/15/21 12/15/21 12/15/21 History mcg/actuation nasal spray,suspension gabapentin 100 mg capsule 1 cap PO BEDTIME 12/15/21 12/15/21 12/14/21 History loratadine 10 mg tablet 1 tab PO DAILY 12/15/21 12/15/21 12/15/21 History lorazepam 0.5 mg tablet 1 tab PO BID 12/15/21 12/15/21 12/15/21 History losartan 50 mg-hydrochlorothiazide 1 tab PO DAILY 12/15/21 12/15/21 12/15/21 History 12.5 mg tablet melatonin 3 mg tablet 9 mg PO BEDTIME 12/15/21 12/15/21 12/14/21 History metformin 500 mg tablet 1 tab PO BID 12/15/21 12/15/21 12/15/21 History metoprolol tartrate 25 mg tablet 1 tab PO BID 12/15/21 12/15/21 12/15/21 History omeprazole 20 mg capsule,delayed 1 cap PO DAILY 12/15/21 12/15/21 12/15/21 History release sertraline 25 mg tablet 75 mg PO BEDTIME 12/15/21 12/15/21 12/14/21 History simvastatin 40 mg tablet 1 tab PO BEDTIME 12/15/21 12/15/21 12/14/21 History Physical Exam Vital Signs and Narrative: Vital Signs: Last Vital Signs Temp 97.5 F 12/15/21 15:09 Pulse 72 12/15/21 17:15 Resp 16 12/15/21 15:09 BP 117/63 12/15/21 17:15 Pulse Ox 95 12/15/21 15:09 BMI result Body Mass Index 27.3 Gen: Appears be in no acute distress HEENT: NCAT, Moist mucosa. Pulmonary: Vesicular breath sounds, fair air entry CVS: Normal S1-S2 Abdomen: BS+, Soft, Nontender Extremities: Warm well perfused Neuro: Alert and awake. Results Labs CBC and Chem 7: 12/15/21 16:12 12/15/21 19:32 Labs: Laboratory Results - last 24 hr 12/15/21 12/15/21 12/15/21 16:12 16:12 16:12 MCV 89.4 MCH 29.1 MCHC 32.6 RDW 14.2 Plt Count 249 MPV 10.2 Immature Gran % (Auto) 0.3 Neut % (Auto) 74.5 H Lymph % (Auto) 15.2 L [place] % (Auto) 6.8 Eos % (Auto) 2.3 Baso % (Auto) 0.9 Lymph # (Auto) 1.4 [place] # (Auto) 0.6 Eos # (Auto) 0.2 Baso # (Auto) 0.1 Abs Immat Gran (auto) 0.03 Absolute Neuts (auto) 7.0 Absolute Nucleated RBC 0.000 Nucleated RBC % (auto) 0.0 PT INR Anion Gap 21 H Estim Creat Clear Calc 24.7 Estimated GFR 24 Random Glucose 115 Lactic Acid Lactic Acid F/U @ 2Hr Calcium 9.9 Magnesium 2.1 Total Bilirubin 0.6 Direct Bilirubin 0.2 AST 15 ALT 17 Alkaline Phosphatase 75 Total Creatine Kinase 49 Troponin I High Sens Total Protein 6.9 Albumin 3.8 Lipase 93 H Valproic Acid COVID-19 (JUAREZ) Negative COVID-19 Clin Com See Note 12/15/21 12/15/21 12/15/21 16:12 16:12 16:12 MCV MCH MCHC RDW Plt Count MPV Immature Gran % (Auto) Neut % (Auto) Lymph % (Auto) [place] % (Auto) Eos % (Auto) Baso % (Auto) Lymph # (Auto) [place] # (Auto) Eos # (Auto) Baso # (Auto) Abs Immat Gran (auto) Absolute Neuts (auto) Absolute Nucleated RBC Nucleated RBC % (auto) PT 12.3 INR 1.1 Anion Gap Estim Creat Clear Calc Estimated GFR Random Glucose Lactic Acid Lactic Acid F/U @ 2Hr Calcium Magnesium Total Bilirubin Direct Bilirubin AST ALT Alkaline Phosphatase Total Creatine Kinase Troponin I High Sens 4.5 Total Protein Albumin Lipase Valproic Acid 34.5 L COVID-19 (JUAREZ) COVID-19 [employer] Com 12/15/21 12/15/21 12/15/21 16:13 19:32 19:32 MCV MCH MCHC RDW Plt Count MPV Immature Gran % (Auto) Neut % (Auto) Lymph % (Auto) [place] % (Auto) Eos % (Auto) Baso % (Auto) Lymph # (Auto) [place] # (Auto) Eos # (Auto) Baso # (Auto) Abs Immat Gran (auto) Absolute Neuts (auto) Absolute Nucleated RBC Nucleated RBC % (auto) PT INR Anion Gap 17 Estim Creat Clear Calc 27.9 Estimated GFR 27 Random Glucose 104 Lactic Acid 3.6 H* Lactic Acid F/U @ 2Hr 1.9 Calcium 9.2 D Magnesium Total Bilirubin Direct Bilirubin AST ALT Alkaline Phosphatase Total Creatine Kinase Troponin I High Sens Total Protein Albumin Lipase Valproic Acid COVID-19 (JUAREZ) COVID-19 Clin Com Imaging Radiologist's Impressions: Impressions Cervical Spine CT 12/15/21 15:59 IMPRESSION: No acute intracranial abnormality. 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 EXAMINATION: CT OF THE CERVICAL SPINE CLINICAL INFORMATION: Fall COMPARISON: December 10, 2021. TECHNIQUE: Thin helical images with sagittal and coronal reformats. This CT examination was performed using dose optimization techniques as appropriate, variously including the following: *Automated exposure control *Adjustment of mA and/or kV according to patient size (this includes techniques or standardized protocols for targeted exams where dose is matched to indication/reason for exam; i.e. extremities or head) *Use of iterative reconstruction technique DOSE: DLP 369 mGy-cm FINDINGS: No abnormal prevertebral soft tissue swelling is seen. Paraspinal muscle fat planes are maintained. No acute cervical spine fracture is noted. There is cervical spondylosis with facet arthropathy bilaterally C3-C7. Temporomandibular joints appear unremarkable. Pterygoid plates intact. Visualized paranasal sinuses and mastoid air cells unremarkable. The lung apices are clear. IMPRESSION: Cervical spondylosis without acute fracture identified. Head CT 12/15/21 15:59 IMPRESSION: No acute intracranial abnormality. 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 EXAMINATION: CT OF THE CERVICAL SPINE CLINICAL INFORMATION: Fall COMPARISON: December 10, 2021. TECHNIQUE: Thin helical images with sagittal and coronal reformats. This CT examination was performed using dose optimization techniques as appropriate, variously including the following: *Automated exposure control *Adjustment of mA and/or kV according to patient size (this includes techniques or standardized protocols for targeted exams where dose is matched to indication/reason for exam; i.e. extremities or head) *Use of iterative reconstruction technique DOSE: DLP 369 mGy-cm FINDINGS: No abnormal prevertebral soft tissue swelling is seen. Paraspinal muscle fat planes are maintained. No acute cervical spine fracture is noted. There is cervical spondylosis with facet arthropathy bilaterally C3-C7. Temporomandibular joints appear unremarkable. Pterygoid plates intact. Visualized paranasal sinuses and mastoid air cells unremarkable. The lung apices are clear. IMPRESSION: Cervical spondylosis without acute fracture identified. Chest X-Ray 12/15/21 16:46 IMPRESSION: No acute disease. Assessment and Plan (1) CECI (acute kidney injury): Status: Acute (2) Falls frequently: Status: Acute Plan 71-year-old female with a past medical history of hypertension, hyperlipidemia, diabetes, TIA, vascular dementia, GERD, anxiety, depression, bipolar disorder, hypothyroidism, hearing impairment, deaf/mute, continue indicates with sign language, COPD, seizure disorder, history of RCC s/p right nephrectomy, recent history of UTI, recent history of right shoulder dislocation presented to the hospital today with a chief complaint of falls. CECI: Patient has known history of right nephrectomy Baseline creatinine around 1.2 Creatinine on presentation was 2.0 Likely prerenal Gentle IV fluids Nephrology consult Avoid nephrotoxins Recurrent falls: Likely in the setting of orthostatic hypotension. CT head showed no acute intracranial process; CT C-spine showed cervical spondylosis without any acute fracture. Gentle IV fluids. Fall precautions. PT/OT. per pt's sister, pt has been falling more frequently after she was recently started on depakote for mood disorder. Patient is currently positive orthostatics; and blood pressure being on the n ormal side with 3 antihypertensives on board. Will titrate down the antihypertensives 1st. Recent history of UTI: Finished course of ceftriaxone. Cultures grew mixed brissa. History of hypertension: Patient on metoprolol 25 mg b.i.d., losartan 50 mg, hydrochlorothiazide 12.5 mg at home. Patient's blood pressure on the soft side. Also orthostatics positive. Hold home antihypertensives. As out pt her BP meds have been titrated down (metoprolol from 100mg to 25mg now) History of diabetes: Hold home metformin. Insulin sliding scale. History of hypothyroidism: Continue home levothyroxine History of Bipolar disorder: Continue home Depakote DVT prophylaxis: Subcu heparin Code status: Full code; Confirmed with pt's sister freddy . Quality Stroke Does the patient have a stroke diagnosis?: No VTE Prior VTE?: No VTE Risk Level:: Medical - moderate - high VTE Device Contraindication: Treatment Not Indicated VTE Drug Contraindication: N/A - Med Ordered
--- NOTE | 2021-12-15 20:39 | PHA.MEDREC ---
Pharmacy Consult ? Medication Reconciliation Pharmacy has completed the medication reconciliation.
--- NOTE | 2021-12-15 21:00 | PC.NURSE ---
pt getting OOB without assistance, redirected back to bed by staff. 2+ assist getting pt back in bed, difficulty with ambulation. pt noncompliant with cardiac leads, pulse ox. dtr contacted with update, states she is unable to reorient her. pt given verbal reassurance using housekeeping department worker.
[2021-12-15 21:38] LABS: Glucose, Whole Blood 112 mg/dL (60-115)
[2021-12-15] MEDS: Heparin Sodium,Porcine 5,000 UNIT/ML VIAL 5000 UNIT SUBCUT (21:42)
--- NOTE | 2021-12-15 23:52 | PC.NURSE ---
Pt A+O to self only, Pt refused all her bedtime medications, Pt deaf and All Lithuanian Sign Language assisted in communicating the importance of this Pt taking her bedtime medications. Pt still would not agree to take medications, wagging her finger and mouthing the word no.
--- NOTE | 2021-12-15 23:54 | PC.NURSE ---
Pt resting, sitter at bedside, safety maintained, this RN continues to monitor.
[2021-12-16] VITALS (7 sets, daily range): BP systolic 98–155; BP diastolic 52–80; PULSE 48–76; RESP 16–18; TEMP 36.2–36.9; O2SAT 95–98
[2021-12-16] MEDS: 0.9 % Sodium Chloride Flush 3 ML SYRINGE IVFLUSH (01:00)
[2021-12-16 01:24] LABS: Glucose, Whole Blood 156 mg/dL (60-115)
[2021-12-16] MEDS: Heparin Sodium,Porcine 5,000 UNIT/ML VIAL 5000 UNIT SUBCUT (05:37)
[2021-12-16 06:27] LABS: MANUAL DIFF FLAG NO
[2021-12-16 06:33] LABS: Basophils Absolute Auto 0.1 X10*3/uL (0.0-0.2); Basophils Percent Auto 0.9 % (0-2); Eosinophils Absolute Auto 0.2 X10*3/uL (0.0-0.4); Eosinophils Percent Auto 2.9 % (0-4); Hematocrit 28.1 % (37.0-47.0); Hemoglobin 9.2 g/dl (12.0-16.0); Imm Gran Abs Auto 0.03 X10*3/uL (0.00-0.03); Imm Gran Pct Auto 0.5 % (0.0-0.4); Lymphocytes Absolute Auto 1.1 X10*3/uL (1.2-4.9); Mean Corpuscular HGB Conc 32.7 g/dl (31.0-35.0); Mean Corpuscular Volume 88.6 fL (80.0-98.0); Mean Platelet Volume 10.5 fL (9.4-12.3); Monocytes Absolute Auto 0.5 X10*3/uL (0.1-1.2); Monocytes Percent Auto 8.2 % (2-11); Neutrophils Percent Auto 68.5 % (45-73); Platelet Count 199 X10*3/uL (160-400); Red Blood Count 3.17 X10*6/uL (4.20-5.50); Red Cell Distribution Width 13.9 % (11.0-16.0); White Blood Count 5.9 X10*3/uL (4.8-10.8)
[2021-12-16 06:44] LABS: Anion Gap 14 (12-20); Blood Urea Nitrogen 71 mg/dL (9-16); Calcium 8.9 mg/dL (8.4-10.2); Carbon Dioxide 23 mmol/L (22-29); Chloride 109 mmol/L (96-108); Creatinine Clr Calc Pharmacy 32.5; Estimated Glomerular Filt Rate 33; Glucose Random 131 mg/dL (60-115); Potassium 3.4 mmol/L (3.3-5.1); Sodium 143 mmol/L (135-145)
[2021-12-16 07:50] LABS: Glucose, Whole Blood 102 mg/dL (60-115)
--- NOTE | 2021-12-16 10:22 | MHC.CM.PN ---
spoke with pts siter/hcp who confirms pt from [facility] where she will return when dcd
--- NOTE | 2021-12-16 10:29 | P.PNIM_ITS ---
Subjective Subjective Date of Service: 12/16/21 Interval History: cc: falls, weakness interval history: feeling better Cardiovascular Cardiovascular: Reports no additional cardiovascular complaints Respiratory Respiratory: Reports no additional respiratory complaints Physical Exam Vital Signs: Vital Signs: Last Vital Signs Temp 98.4 F 12/16/21 07:41 Pulse 51 12/16/21 07:41 Resp 16 12/16/21 07:41 BP 136/73 12/16/21 07:41 Pulse Ox 98 12/16/21 07:41 BMI result Body Mass Index 27.3 General: AO X 2, no acute distress, hard of hearing Resp: CTA bilateral, no accessory muscles used CVS: S1,S2,RRR GI: soft, non tender, non distended Neuro: motor grossly intact, alert Psych: appropriate affect, appropriate insight Objective Data Active Medications Acetaminophen (Acetaminophen 325 Mg Tablet) 650 mg PO Q6H PRN PRN Reason: Pain, Mild (Pain Scale 1-3) Atorvastatin Calcium (Atorvastatin Calcium 20 Mg Tablet) 20 mg PO BEDTIME [facility] Dextrose (Dextrose 50 % 25 Gm/50 Ml Syringe) 25 gm IVPUSH Q15M PRN; Protocol PRN Reason: per Hypoglycemia Standing Ord. Divalproex Sodium (Divalproex Sodium Sprinkles 125 Mg ) 125 mg PO BID@0900,1400 [facility] Divalproex Sodium (Divalproex Sodium Sprinkles 125 Mg ) 375 mg PO BEDTIME [facility] Last Admin: 12/16/21 00:44 Dose: Not Given Documented by: TRACE Non-Admin Reason: Patient Refused Ferrous Sulfate (Ferrous Sulfate 324 Mg Lola.) 324 mg PO Q2D [facility] Fluticasone Propionate (Fluticasone Propionate Nasal 16 Gm [place]) 1 spray NOSTRIL-B BID [facility] Gabapentin (Gabapentin 100 Mg Capsule) 100 mg PO BEDTIME [facility] Last Admin: 12/16/21 00:45 Dose: Not Given Documented by: TRACE Non-Admin Reason: Patient Refused Glucose (Glucose Gel 15 Gm Gel..Gram.) 15 gm PO Q15M PRN; Protocol PRN Reason: per Hypoglycemia Standing Ord. Heparin Sodium (Porcine) (Heparin Sodium,Porcine 5,000 Unit/Ml Vial) 5,000 unit SUBCUT Q8H [facility] Last Admin: 12/16/21 05:37 Dose: 5,000 unit Documented by: ARASH Insulin Human Lispro (Insulin Lispro 100 Unit/Ml 3 Ml Vial) 0 unit SUBCUT QIDACHS [facility]; Protocol Last Admin: 12/16/21 08:13 Dose: Not Given Documented by: MICHELLE Non-Admin Reason: No Insulin Coverage Loratadine (Loratadine 10 Mg Tablet) 10 mg PO DAILY [facility] Lorazepam (Lorazepam 0.5 Mg Tablet) 0.5 mg PO BID [facility] Last Admin: 12/16/21 00:45 Dose: Not Given Documented by: TRACE Non-Admin Reason: Patient Refused Melatonin (Melatonin 3 Mg Tablet) 9 mg PO BEDTIME [facility] Last Admin: 12/16/21 00:46 Dose: Not Given Documented by: TRACE Non-Admin Reason: Patient Refused Non-Formulary Medication (Cholecalciferol (Vitamin D3)) 1,250 mcg PO Q30D [facility] Non-Formulary Medication (Fluticasone Propionate [Flovent Hfa]) 2 puff INHALE BID [facility] Omeprazole (Omeprazole 20 Mg Capsule.Dr) 20 mg PO DAILY@0630 [facility] Last Admin: 12/16/21 05:42 Dose: Not Given Documented by: ARASH Non-Admin Reason: Patient Refused Senna (Sennosides 8.6 Mg Tablet) 17.2 mg PO BEDTIME PRN PRN Reason: Constipation Sertraline HCl (Sertraline Hcl 25 Mg Tablet) 75 mg PO BEDTIME [facility] Last Admin: 12/16/21 00:46 Dose: Not Given Documented by: TRACE Non-Admin Reason: Patient Refused Sodium Chloride (0.9 % Sodium Chloride Flush 3 Ml Syringe) 3 ml IVFLUSH QSHIFT [facility] Last Admin: 12/16/21 09:54 Dose: Not Given Documented by: MICHELLE Non-Admin Reason: IV Running Labs CBC & Chem 7: 12/16/21 06:21 12/16/21 06:21 Labs: Laboratory Results - last 24 hr 12/15/21 12/15/21 12/15/21 16:12 16:12 16:12 MCV 89.4 MCH 29.1 MCHC 32.6 RDW 14.2 Plt Count 249 MPV 10.2 Immature Gran % (Auto) 0.3 Neut % (Auto) 74.5 H Lymph % (Auto) 15.2 L [place] % (Auto) 6.8 Eos % (Auto) 2.3 Baso % (Auto) 0.9 Lymph # (Auto) 1.4 [place] # (Auto) 0.6 Eos # (Auto) 0.2 Baso # (Auto) 0.1 Abs Immat Gran (auto) 0.03 Absolute Neuts (auto) 7.0 Absolute Nucleated RBC 0.000 Nucleated RBC % (auto) 0.0 PT INR Anion Gap 21 H Estim Creat Clear Calc 24.7 Estimated GFR 24 POC Glucose Random Glucose 115 Lactic Acid Lactic Acid F/U @ 2Hr Calcium 9.9 Magnesium 2.1 Total Bilirubin 0.6 Direct Bilirubin 0.2 AST 15 ALT 17 Alkaline Phosphatase 75 Total Creatine Kinase 49 Troponin I High Sens Total Protein 6.9 Albumin 3.8 Lipase 93 H Valproic Acid COVID-19 (JUAREZ) Negative COVID-19 Clin Com See Note 12/15/21 12/15/21 12/15/21 16:12 16:12 16:12 MCV MCH MCHC RDW Plt Count MPV Immature Gran % (Auto) Neut % (Auto) Lymph % (Auto) [place] % (Auto) Eos % (Auto) Baso % (Auto) Lymph # (Auto) [place] # (Auto) Eos # (Auto) Baso # (Auto) Abs Immat Gran (auto) Absolute Neuts (auto) Absolute Nucleated RBC Nucleated RBC % (auto) PT 12.3 INR 1.1 Anion Gap Estim Creat Clear Calc Estimated GFR POC Glucose Random Glucose Lactic Acid Lactic Acid F/U @ 2Hr Calcium Magnesium Total Bilirubin Direct Bilirubin AST ALT Alkaline Phosphatase Total Creatine Kinase Troponin I High Sens 4.5 Total Protein Albumin Lipase Valproic Acid 34.5 L COVID-19 ([facility]) COVID-19 Clin Com 12/15/21 12/15/21 12/15/21 16:13 19:32 19:32 MCV MCH MCHC RDW Plt Count MPV Immature Gran % (Auto) Neut % (Auto) Lymph % (Auto) [place] % (Auto) Eos % (Auto) Baso % (Auto) Lymph # (Auto) [place] # (Auto) Eos # (Auto) Baso # (Auto) Abs Immat Gran (auto) Absolute Neuts (auto) Absolute Nucleated RBC Nucleated RBC % (auto) PT INR Anion Gap 17 Estim Creat Clear Calc 27.9 Estimated GFR 27 POC Glucose Random Glucose 104 Lactic Acid 3.6 H* Lactic Acid F/U @ 2Hr 1.9 Calcium 9.2 D Magnesium Total Bilirubin Direct Bilirubin AST ALT Alkaline Phosphatase Total Creatine Kinase Troponin I High Sens Total Protein Albumin Lipase Valproic Acid COVID-19 (JUAREZ) COVID-19 [employer] Com 12/15/21 12/16/21 12/16/21 21:34 01:21 06:21 MCV 88.6 MCH 29.0 MCHC 32.7 RDW 13.9 Plt Count 199 MPV 10.5 Immature Gran % (Auto) 0.5 H Neut % (Auto) 68.5 Lymph % (Auto) 19.0 L [place] % (Auto) 8.2 Eos % (Auto) 2.9 Baso % (Auto) 0.9 Lymph # (Auto) 1.1 L [place] # (Auto) 0.5 Eos # (Auto) 0.2 Baso # (Auto) 0.1 Abs Immat Gran (auto) 0.03 Absolute Neuts (auto) 4.0 Absolute Nucleated RBC 0.000 Nucleated RBC % (auto) 0.0 PT INR Anion Gap Estim Creat Clear Calc Estimated GFR POC Glucose 112 156 H Random Glucose Lactic Acid Lactic Acid F/U @ 2Hr Calcium Magnesium Total Bilirubin Direct Bilirubin AST ALT Alkaline Phosphatase Total Creatine Kinase Troponin I High Sens Total Protein Albumin Lipase Valproic Acid COVID-19 ([facility]Z) COVID-19 [employer] 12/16/21 12/16/21 06:21 07:44 MCV MCH MCHC RDW Plt Count MPV Immature Gran % (Auto) Neut % (Auto) Lymph % (Auto) [place] % (Auto) Eos % (Auto) Baso % (Auto) Lymph # (Auto) [place] # (Auto) Eos # (Auto) Baso # (Auto) Abs Immat Gran (auto) Absolute Neuts (auto) Absolute Nucleated RBC Nucleated RBC % (auto) PT INR Anion Gap 14 Estim Creat Clear Calc 32.5 Estimated GFR 33 POC Glucose 102 Random Glucose 131 H Lactic Acid Lactic Acid F/U @ 2Hr Calcium 8.9 Magnesium Total Bilirubin Direct Bilirubin AST ALT Alkaline Phosphatase Total Creatine Kinase Troponin I High Sens Total Protein Albumin Lipase Valproic Acid COVID-19 ([facility]) COVID-19 Clin Com Assessment and Plan (1) DM (diabetes mellitus): Status: Acute Plan 71F presented with falls falls due to orthostatic hypotension hold antihypertensives, monitor CECI due to hypotension off antihypertensives, received fluids in eD, monitor bmp DM inuslin montior poc hypothyroid synthroid bipolar depakote reason for continued hospitalization: monitoring closely for resolution of CECI and low blood pressures Quality Stroke Does the patient have a stroke diagnosis?: No VTE Prior VTE?: No VTE Risk Level:: Medical - moderate - high VTE Device Contraindication: Treatment Not Indicated VTE Drug Contraindication: N/A - Med Ordered
[2021-12-16] MEDS: LORazepam 0.5 MG TABLET PO ×2 (11:18→20:10)
[2021-12-16] MEDS: Divalproex Sodium Sprinkles 125 MG CAP.DR.SPR PO ×3 (11:18→14:20)
[2021-12-16 11:39] LABS: Glucose, Whole Blood 203 mg/dL (60-115)
--- NOTE | 2021-12-16 11:48 | P.PNNP_ITS ---
Subjective Subjective Date of Service: 12/16/21 Interval history: cc: falls, weakness interval history: feeling better Physical Exam Vital Signs: Vital Signs: Last Vital Signs Temp 98.1 F 12/16/21 11:31 Pulse 69 12/16/21 11:31 Resp 16 12/16/21 11:31 BP 126/75 12/16/21 11:31 Pulse Ox 95 12/16/21 11:31 BMI result Body Mass Index 27.3 Objective Data Labs CBC & Chem 7: 12/16/21 06:21 12/16/21 06:21 Labs: Laboratory Results - last 24 hr 12/15/21 12/15/21 12/15/21 16:12 16:12 16:12 WBC 9.4 RBC 3.57 L Hgb 10.4 L Hct 31.9 L MCV 89.4 MCH 29.1 MCHC 32.6 RDW 14.2 Plt Count 249 MPV 10.2 Immature Gran % (Auto) 0.3 Neut % (Auto) 74.5 H Lymph % (Auto) 15.2 L [place] % (Auto) 6.8 Eos % (Auto) 2.3 Baso % (Auto) 0.9 Lymph # (Auto) 1.4 [place] # (Auto) 0.6 Eos # (Auto) 0.2 Baso # (Auto) 0.1 Abs Immat Gran (auto) 0.03 Absolute Neuts (auto) 7.0 Absolute Nucleated RBC 0.000 Nucleated RBC % (auto) 0.0 PT INR Sodium 142 Potassium 3.7 Chloride 103 Carbon Dioxide 22 Anion Gap 21 H BUN 87 H D Creatinine 2.07 H Estim Creat Clear Calc 24.7 Estimated GFR 24 POC Glucose Random Glucose 115 Lactic Acid Lactic Acid F/U @ 2Hr Calcium 9.9 Magnesium 2.1 Total Bilirubin 0.6 Direct Bilirubin 0.2 AST 15 ALT 17 Alkaline Phosphatase 75 Total Creatine Kinase 49 Troponin I High Sens Total Protein 6.9 Albumin 3.8 Lipase 93 H Valproic Acid COVID-19 ([facility]) Negative COVID-19 Clin Com See Note 12/15/21 12/15/21 12/15/21 16:12 16:12 16:12 WBC RBC Hgb Hct MCV MCH MCHC RDW Plt Count MPV Immature Gran % (Auto) Neut % (Auto) Lymph % (Auto) [place] % (Auto) Eos % (Auto) Baso % (Auto) Lymph # (Auto) [place] # (Auto) Eos # (Auto) Baso # (Auto) Abs Immat Gran (auto) Absolute Neuts (auto) Absolute Nucleated RBC Nucleated RBC % (auto) PT 12.3 INR 1.1 Sodium Potassium Chloride Carbon Dioxide Anion Gap BUN Creatinine Estim Creat Clear Calc Estimated GFR POC Glucose Random Glucose Lactic Acid Lactic Acid F/U @ 2Hr Calcium Magnesium Total Bilirubin Direct Bilirubin AST ALT Alkaline Phosphatase Total Creatine Kinase Troponin I High Sens 4.5 Total Protein Albumin Lipase Valproic Acid 34.5 L COVID-19 ([facility]) COVID-19 [employer] 12/15/21 12/15/21 12/15/21 16:13 19:32 19:32 WBC RBC Hgb Hct MCV MCH MCHC RDW Plt Count MPV Immature Gran % (Auto) Neut % (Auto) Lymph % (Auto) [place] % (Auto) Eos % (Auto) Baso % (Auto) Lymph # (Auto) [place] # (Auto) Eos # (Auto) Baso # (Auto) Abs Immat Gran (auto) Absolute Neuts (auto) Absolute Nucleated RBC Nucleated RBC % (auto) PT INR Sodium 140 Potassium 3.3 Chloride 106 Carbon Dioxide 20 L Anion Gap 17 BUN 83 H Creatinine 1.83 H Estim Creat Clear Calc 27.9 Estimated GFR 27 POC Glucose Random Glucose 104 Lactic Acid 3.6 H* Lactic Acid F/U @ 2Hr 1.9 Calcium 9.2 D Magnesium Total Bilirubin Direct Bilirubin AST ALT Alkaline Phosphatase Total Creatine Kinase Troponin I High Sens Total Protein Albumin Lipase Valproic Acid COVID-19 ([facility]) COVID-19 [employer] 12/15/21 12/16/21 12/16/21 21:34 01:21 06:21 WBC 5.9 RBC 3.17 L Hgb 9.2 L Hct 28.1 L MCV 88.6 MCH 29.0 MCHC 32.7 RDW 13.9 Plt Count 199 MPV 10.5 Immature Gran % (Auto) 0.5 H Neut % (Auto) 68.5 Lymph % (Auto) 19.0 L [place] % (Auto) 8.2 Eos % (Auto) 2.9 Baso % (Auto) 0.9 Lymph # (Auto) 1.1 L [place] # (Auto) 0.5 Eos # (Auto) 0.2 Baso # (Auto) 0.1 Abs Immat Gran (auto) 0.03 Absolute Neuts (auto) 4.0 Absolute Nucleated RBC 0.000 Nucleated RBC % (auto) 0.0 PT INR Sodium Potassium Chloride Carbon Dioxide Anion Gap BUN Creatinine Estim Creat Clear Calc Estimated GFR POC Glucose 112 156 H Random Glucose Lactic Acid Lactic Acid F/U @ 2Hr Calcium Magnesium Total Bilirubin Direct Bilirubin AST ALT Alkaline Phosphatase Total Creatine Kinase Troponin I High Sens Total Protein Albumin Lipase Valproic Acid COVID-19 ([facility]Z) COVID-19 [employer] Com 12/16/21 12/16/21 12/16/21 06:21 07:44 11:35 WBC RBC Hgb Hct MCV MCH MCHC RDW Plt Count MPV Immature Gran % (Auto) Neut % (Auto) Lymph % (Auto) [place] % (Auto) Eos % (Auto) Baso % (Auto) Lymph # (Auto) [place] # (Auto) Eos # (Auto) Baso # (Auto) Abs Immat Gran (auto) Absolute Neuts (auto) Absolute Nucleated RBC Nucleated RBC % (auto) PT INR Sodium 143 Potassium 3.4 Chloride 109 H Carbon Dioxide 23 Anion Gap 14 BUN 71 H Creatinine 1.57 H Estim Creat Clear Calc 32.5 Estimated GFR 33 POC Glucose 102 203 H Random Glucose 131 H Lactic Acid Lactic Acid F/U @ 2Hr Calcium 8.9 Magnesium Total Bilirubin Direct Bilirubin AST ALT Alkaline Phosphatase Total Creatine Kinase Troponin I High Sens Total Protein Albumin Lipase Valproic Acid COVID-19 ([facility]) COVID-19 Clin Com Procedures Date of Service Date of Service: 12/16/21 Assessment & Plan Assessment and plan (1) DM (diabetes mellitus): Status: Acute Plan hypertension, hyperlipidemia, diabetes, TIA, vascular dementia, GERD, anxiety, depression, bipolar disorder, hypothyroidism, hearing impairment, deaf/mute, continue indicates with sign language, COPD, seizure disorder, history of right nephrectomy, recent history of UTI falls due to orthostatic hypotension hold antihypertensives, monitor CECI due to hypotension off antihypertensives, received fluids and now creat is declining no new suggestions urine studies ordered Time Spent With Patient Time: Total time spent is greater than 50% in coordination of care (as documented) at patient's floor/unit and/or counseling patient: Progress Note: Quality Stroke Does the patient have a stroke diagnosis?: No
[2021-12-16] MEDS: Insulin Lispro 100 UNIT/ML 3 ML VIAL SUBCUT (11:55)
[2021-12-16 16:59] LABS: Glucose, Whole Blood 105 mg/dL (60-115)
[2021-12-16 20:06] LABS: Glucose, Whole Blood 134 mg/dL (60-115)
[2021-12-16] MEDS: Sertraline HCL 25 MG TABLET 75 MG PO (20:08)
[2021-12-16] MEDS: Divalproex Sodium Sprinkles 125 MG CAP.DR.SPR 375 MG PO (20:09)
[2021-12-16] MEDS: Fluticasone Propionate Nasal 16 GM SPRAY 1 SPRAY NOSTRIL-B (20:10)
[2021-12-16] MEDS: Gabapentin 100 MG CAPSULE PO (20:10)
[2021-12-16] MEDS: Melatonin 3 MG TABLET 9 MG PO (20:10)
[2021-12-16] MEDS: Atorvastatin Calcium 20 MG TABLET PO (20:10)
[2021-12-17] VITALS (7 sets, daily range): BP systolic 135–167; BP diastolic 65–85; PULSE 50–81; RESP 14–18; TEMP 36–36.7; O2SAT 96–99
[2021-12-17] MEDS: 0.9 % Sodium Chloride Flush 3 ML SYRINGE IVFLUSH ×2 (01:19→10:02)
[2021-12-17] MEDS: Heparin Sodium,Porcine 5,000 UNIT/ML VIAL 5000 UNIT SUBCUT ×2 (04:56→12:25)
[2021-12-17 05:35] LABS: Hematocrit 27.6 % (37.0-47.0); Hemoglobin 8.9 g/dl (12.0-16.0); Mean Corpuscular HGB Conc 32.2 g/dl (31.0-35.0); Mean Corpuscular Hemoglobin 28.5 pg (27.0-33.0); Mean Corpuscular Volume 88.5 fL (80.0-98.0); Mean Platelet Volume 10.4 fL (9.4-12.3); Platelet Count 187 X10*3/uL (160-400); Red Blood Count 3.12 X10*6/uL (4.20-5.50); Red Cell Distribution Width 13.8 % (11.0-16.0)
[2021-12-17 06:23] LABS: Anion Gap 16 (12-20); Blood Urea Nitrogen 58 mg/dL (9-16); Calcium 9.4 mg/dL (8.4-10.2); Carbon Dioxide 23 mmol/L (22-29); Chloride 109 mmol/L (96-108); Creatinine Clr Calc Pharmacy 33.7; Estimated Glomerular Filt Rate 34; Glucose Fasting 122 mg/dL (60-99); Potassium 3.5 mmol/L (3.3-5.1); Sodium 144 mmol/L (135-145)
--- NOTE | 2021-12-17 08:29 | PM.PNNEP ---
Subjective Subjective Date of Service: 12/17/21 Interval history: cc: falls, weakness interval history: feeling better Physical Exam Vital Signs: Vital Signs: Last Vital Signs Temp 96.8 F 12/17/21 07:24 Pulse 50 12/17/21 07:24 Resp 18 12/17/21 07:24 BP 139/65 12/17/21 07:24 Pulse Ox 99 12/17/21 07:24 BMI result Body Mass Index 27.3 Objective Data Labs CBC & Chem 7: 12/17/21 04:52 12/17/21 04:52 Labs: Laboratory Results - last 24 hr 12/16/21 12/16/21 12/16/21 11:35 16:54 20:02 WBC RBC Hgb Hct MCV MCH MCHC RDW Plt Count MPV Absolute Nucleated RBC Nucleated RBC % (auto) Sodium Potassium Chloride Carbon Dioxide Anion Gap BUN Creatinine Estim Creat Clear Calc Estimated GFR POC Glucose 203 H 105 134 H Fasting Glucose Calcium 12/17/21 12/17/21 04:52 04:52 WBC 5.0 RBC 3.12 L Hgb 8.9 L Hct 27.6 L MCV 88.5 MCH 28.5 MCHC 32.2 RDW 13.8 Plt Count 187 MPV 10.4 Absolute Nucleated RBC 0.000 Nucleated RBC % (auto) 0.0 Sodium 144 Potassium 3.5 Chloride 109 H Carbon Dioxide 23 Anion Gap 16 BUN 58 H Creatinine 1.51 H Estim Creat Clear Calc 33.7 Estimated GFR 34 POC Glucose Fasting Glucose 122 H Calcium 9.4 Procedures Date of Service Date of Service: 12/17/21 Assessment & Plan Assessment and plan (1) DM (diabetes mellitus): Status: Acute Plan hypertension, hyperlipidemia, diabetes, TIA, vascular dementia, GERD, anxiety, depression, bipolar disorder, hypothyroidism, hearing impairment, deaf/mute, continue indicates with sign language, COPD, seizure disorder, history of right nephrectomy, recent history of UTI falls due to orthostatic hypotension hold antihypertensives, monitor CECI due to hypotension off antihypertensives, received fluids and now creat is declining STABLE CREAT WILL CHECK IRON Time Spent With Patient Time: Total time spent is greater than 50% in coordination of care (as documented) at patient's floor/unit and/or counseling patient: Progress Note: Quality Stroke Does the patient have a stroke diagnosis?: No
[2021-12-17 09:01] LABS: Iron 58 mcg/dL (30-160); Percent Iron Saturation 19 % (15-50); Total Iron Binding Capacity 306 mcg/dL (228-428); Unsaturated Iron Binding 248 ug/dL
[2021-12-17 09:21] LABS: Ferritin 79 ng/mL (10-250)
[2021-12-17 09:46] LABS: Glucose, Whole Blood 111 mg/dL (60-115)
[2021-12-17] MEDS: LORazepam 0.5 MG TABLET PO (10:01)
[2021-12-17] MEDS: Loratadine 10 MG TABLET PO (10:02)
--- NOTE | 2021-12-17 12:03 | P.DS_ITS ---
DS: Providers Provider Date of Service: 12/17/21 Date of admission: 12/15/21 20:09 Primary care physician: Hortencia Johnson MD Consults: 12/15/21 20:18 Consult to Nephrology Routine Consulting Provider: Blaine Sandoval Reason for consultation: Velasquez DS: Diagnosis Discharge Diagnosis (1) DM (diabetes mellitus): Status: Acute DS: Summary Hospital Course Hospital Course: Patient was admitted for falls due to orthostatic hypotension. Her antihypertensives were discontinued. She was given IV fluids. Her orthostasis improved. She was also noted to have acute kidney injury. This was likely due to hypotension. She had noted improvement, creatinine at discharge is 1.5. For diabetes shoes continue on insulin, for hypothyroidism she was continued on Synthroid, for bipolar she was continued on Depakote. [facility] Will continue to hold antihypertensives, will monitor BMP, orthostatic precautions. May need to tolerate higher than ideal blood pressures to avoid hypotension. Time Spent with Patient Time attestation: Total time spent providing and/or coordinating discharge services: Discharge coordination time: Greater than 30 minutes Quality: Safe Use of Opioids Does Pt have an Active Cancer Diagnosis on the Problem List?: No Quality: Stroke Does the patient have a stroke diagnosis?: No Physical Exam Vital Signs: Vital Signs: Last Vital Signs Temp 97.3 F 12/17/21 11:11 Pulse 81 12/17/21 11:11 Resp 18 12/17/21 11:11 BP 167/85 H 12/17/21 11:11 Pulse Ox 97 12/17/21 11:11 BMI result Body Mass Index 27.3 General: AO X 2, no acute distress, hard of hearing Resp:? CTA bilateral, no accessory muscles used CVS: S1,S2,RRR GI: soft, non tender, non distended Neuro:? motor grossly intact, alert Psych: appropriate affect, appropriate insight? DS: Data Data Completed and Pending Labs on day of discharge: Laboratory Results - last 24 hr 12/16/21 12/16/21 12/17/21 16:54 20:02 04:52 WBC 5.0 RBC 3.12 L Hgb 8.9 L Hct 27.6 L MCV 88.5 MCH 28.5 MCHC 32.2 RDW 13.8 Plt Count 187 MPV 10.4 Absolute Nucleated RBC 0.000 Nucleated RBC % (auto) 0.0 Sodium Potassium Chloride Carbon Dioxide Anion Gap BUN Creatinine Estim Creat Clear Calc Estimated GFR POC Glucose 105 134 H Fasting Glucose Calcium Iron TIBC % Saturation Unsat Iron Binding Ferritin 12/17/21 12/17/21 04:52 07:30 WBC RBC Hgb Hct MCV MCH MCHC RDW Plt Count MPV Absolute Nucleated RBC Nucleated RBC % (auto) Sodium 144 Potassium 3.5 Chloride 109 H Carbon Dioxide 23 Anion Gap 16 BUN 58 H Creatinine 1.51 H Estim Creat Clear Calc 33.7 Estimated GFR 34 POC Glucose 111 Fasting Glucose 122 H Calcium 9.4 Iron 58 TIBC 306 % Saturation 19 Unsat Iron Binding 248 Ferritin 79 Discharge Plan Discharge Patient Disposition: Xfer SNF Discharge Diagnosis: orthostatic hypotension Referrals: Hortencia Johnson MD [Primary Care Provider] - 1 Week Discharge Medications: Continued metformin 500 mg tablet 1 tab PO BID 0RF melatonin 3 mg tablet 9 mg PO BEDTIME 0RF simvastatin 40 mg tablet 1 tab PO BEDTIME 0RF lorazepam 0.5 mg tablet 1 tab PO BID 0RF ferrous sulfate 325 mg (65 mg iron) tablet 1 tab PO Q2D 0RF Rx Instructions: UNTIL 12/25/21 Flovent HFA 44 mcg/actuation HFA aerosol inhaler 2 puff inhalation BID 0RF sertraline 25 mg tablet 75 mg PO BEDTIME 0RF omeprazole 20 mg capsule,delayed release(DR/EC) 1 cap PO DAILY 0RF gabapentin 100 mg capsule 1 cap PO BEDTIME 0RF fluticasone propionate 50 mcg/actuation spray,suspension 1 spray intranasal BID 0RF divalproex 125 mg capsule, delayed rel sprinkle 125 mg PO BID 0RF Rx Instructions: AT 0900 AND 1400 divalproex 125 mg capsule, delayed rel sprinkle 375 mg PO BEDTIME 0RF loratadine 10 mg tablet 1 tab PO DAILY 0RF cholecalciferol (vitamin D3) 1,250 mcg (50,000 unit) Capsule 1,250 mcg PO QMONTH 0RF Discontinued losartan-hydrochlorothiazide 50-12.5 mg tablet 1 tab PO DAILY 0RF metoprolol tartrate 25 mg tablet 1 tab PO BID 0RF Discharge Orders: Discharge Order (Routine); Ordered 12/17/21 Ordered By: Joe [place] Diet: advance to usual diet Activity on Discharge: As tolerated Stand Alone Forms: Patient Portal Discharge page Care Plan Goals: avoid falls Health Concerns: orthostatic hypotension, velasquez Plan of Treatment: hold bp meds, mnoitor, will need to tolerate higher bps, orthostatic precautions Assessment: see above
[2021-12-17 12:14] LABS: Glucose, Whole Blood 178 mg/dL (60-115)
[2021-12-17] MEDS: Divalproex Sodium Sprinkles 125 MG CAP.DR.SPR PO (12:25)
[2021-12-17] MEDS: Insulin Lispro 100 UNIT/ML 3 ML VIAL SUBCUT (12:25)
--- NOTE | 2021-12-17 12:25 | MHC.CM.PN ---
[facility] spoke with blanca on 3rd floor where pt will return to,pts sister fernando left tm re same
== END 2021-12-17 15:01 | disposition skilled nursing facility (03) | DRG 312 ==
LOC: HO.ED 16:06 → HO.EDOVER 20:40 → HO.IMC 12-16 00:15
PROVIDERS: Emergency Medicine; Internal Medicine Nephrology; Admitting Provider Hospitalist; Emergency Provider Emergency Medicine; PCP Internal Medicine; Visit Provider Internal Medicine
DX: I95.2 Hypotension due to drugs (principal); N17.9 Acute kidney failure, unspecified; E11.9 Type 2 diabetes mellitus without complications; E03.9 Hypothyroidism, unspecified; F01.50 Vascular dementia, unspecified severity, without behavioral disturbance, psychotic disturbance, mood disturbance, and anxiety; M51.36 Other intervertebral disc degeneration, lumbar region; T46.5X5A Adverse effect of other antihypertensive drugs, initial encounter; E78.5 Hyperlipidemia, unspecified; G40.909 Epilepsy, unspecified, not intractable, without status epilepticus; K21.9 Gastro-esophageal reflux disease without esophagitis; F31.9 Bipolar disorder, unspecified; Z20.822 Contact with and (suspected) exposure to COVID-19; Z87.440 Personal history of urinary (tract) infections; Z90.5 Acquired absence of kidney; Z79.51 Long term (current) use of inhaled steroids; Z79.84 Long term (current) use of oral hypoglycemic drugs; Z79.899 Other long term (current) drug therapy
CPT/HCPCS: 36415; 70450; 71045; 72125; 80048; 80076; 80164; 82550; 82728; 82947; 83540; 83605; 83690; 83735; 84484; 85025; 85027; 85610; 87635; 93005; 96360; 96361; 99219; 99285

== ENCOUNTER → 2022-01-08 12:52 | Outpatient (BNVA) | payer MEDICARE, SELFPAY | PROVIDERS: PCP Internal Medicine; Visit Provider Physician Assistant | DX: S43.004A Unspecified dislocation of right shoulder joint, initial encounter (principal) | CPT/HCPCS: 99202 ==

== ENCOUNTER 2023-04-27 11:48 | Emergency (ER) | payer MEDICARE, SELFPAY ==
--- NOTE | ~2023-04-27 | US_ITS ---
EXAMINATION: US ABDOMEN LIMITED CLINICAL INFORMATION: Upper quadrant pain. Elevated alkaline phosphatase. COMPARISON: None available. TECHNIQUE: Real-time imaging of the right upper quadrant abdominal viscera. The exam was ended early due to patient being altered and combative FINDINGS: PANCREAS: The visualized portions are unremarkable. LIVER: Limited evaluation of the liver due to patient being combative. The visualized portions of the liver appear grossly normal. GALLBLADDER: The gallbladder is surgically absent. COMMON BILE DUCT: Normal in caliber measuring 0.68 cm in diameter. FREE FLUID: None. US/US abdomen limited IMPRESSION: 1. The gallbladder is surgically absent. 2. Mild prominence of the common bile duct likely related to cholecystectomy.
--- NOTE | ~2023-04-27 | CT_ITS ---
EXAMINATION: CT ABDOMEN AND PELVIS WITHOUT CONTRAST CLINICAL INFORMATION: Abdominal pain COMPARISON: None available. TECHNIQUE: Multidetector volumetric imaging was performed from the superior aspect of the liver through the pubic symphysis. Sagittal and coronal reformatted images were obtained on the technologist's workstation. This CT examination was performed using dose optimization techniques as appropriate, variously including the following: *Automated exposure control *Adjustment of mA and/or kV according to patient size (this includes techniques or standardized protocols for targeted exams where dose is matched to indication/reason for exam; i.e. extremities or head) *Use of iterative reconstruction technique DLP: 758 mGy-cm FINDINGS: LUNG BASES: The visualized lung bases are unremarkable. LIVER, GALLBLADDER, AND BILIARY TREE: The liver is normal enlarged measuring up to 21.5 cm. No focal hepatic lesion or biliary ductal dilatation is present. Clips consistent with cholecystectomy. PANCREAS: Unremarkable. SPLEEN: Top normal at 12.5 cm ADRENAL GLANDS: Unremarkable. KIDNEYS AND URETERS: The kidneys are normal in size, shape, and attenuation. No hydronephrosis, hydroureter, or calculi seen. No perinephric stranding. BLADDER: Left kidney notable for an exophytic cyst upper pole cortex posteriorly measuring single Hounsfield units most consistent with a benign cyst. Largest cyst lower pole anterolaterally cyst noted as well. No calculus hydronephrosis. Right kidney appears to be absent. Correlate with any surgical history. GASTROINTESTINAL TRACT: Large axial type hiatus hernia. Large amount stool throughout the colon. No acute inflammatory changes. No definitive findings of stercoral colitis. ABDOMINAL WALL: No significant hernia is appreciated. LYMPH NODES: Normal. VASCULAR: Unremarkable. PELVIC VISCERA: Appears to surgically absent. OSSEOUS STRUCTURES: Unremarkable. CT/CT abdomen pelvis wo IV con IMPRESSION: 1. No acute inflammatory changes. 2. Large hiatus hernia. 3. Large amount of stool throughout the colon. Fleischner guidelines were followed.
--- NOTE | ~2023-04-27 | XR_ITS ---
EXAMINATION: XR CHEST CLINICAL INFORMATION: Altered COMPARISON: Chest radiograph from 12/15/2021 TECHNIQUE: 2 views of the chest were obtained. FINDINGS: Bilateral low lung volumes. Slight accentuation of the pulmonary vasculature. Incomplete evaluation the bilateral lung apices though no large pneumothorax. Trachea is midline. Cardiomediastinal silhouette is stable. Suggestion of a hiatal hernia. No large pleural effusion. Degenerative changes of the thoracolumbar spine. Surgical clips in the upper abdomen. Soft tissues are unremarkable. XR/XR chest 2V IMPRESSION: 1. Bilateral low lung volumes. 2. Slight accentuation of the pulmonary vasculature. 3. Incomplete evaluation the bilateral lung apices though no large pneumothorax. 4. Suggestion of a hiatal hernia.
[2023-04-27 11:59] VITALS: BP 152/88; BP 160/100; PULSE 80; PULSE 98; RESP 18; TEMP 37.1; O2SAT 95; O2SAT 98; BMI 22.5
--- NOTE | 2023-04-27 12:03 | PC.NURSE ---
Patient from [facility]. Per staff patient seems more confused than baseline, normally is happy and laughing and today was sad and crying. Patient unable to provide any complaints, denies pain or discomfort.
--- NOTE | 2023-04-27 12:11 | ED.AMS ---
HPI - Altered Mental Status General Chief Complaint: Altered Mental Status Stated Complaint: AMS FROM SNF PER EMS Time Seen by Provider: 04/27/23 12:06 Source: EMS and old records reviewed Mode of arrival: EMS Limitations: altered mental status History of Present Illness HPI narrative: 73-year-old female with a history of vascular dementia, deaf seizure disorder, diabetes, hypertension, frequent falls who presents to the ER from [facility] via EMS for evaluation of altered mental status. Patient was found to be not acting herself today. She reportedly had an elevated BP and HR and didn't look good so she was sent to the ER for further evaluation. She is confused and nonverbal at baseline, resists care per facility. MD complaint: other (didn't look well, elevated BP and HR) Onset (ago): unknown Related Data Home Medications Medication Instructions Recorded Confirmed cholecalciferol (vitamin D3) 1,250 1,250 mcg PO QMONTH 12/15/21 12/15/21 mcg (50,000 unit) capsule divalproex 125 mg capsule,delayed 125 mg PO BID 12/15/21 12/15/21 release sprinkle divalproex 125 mg capsule,delayed 375 mg PO BEDTIME 12/15/21 12/15/21 release sprinkle ferrous sulfate 325 mg (65 mg 1 tab PO Q2D 12/15/21 12/15/21 iron) tablet fluticasone propionate 44 2 puff inhalation BID 12/15/21 12/15/21 mcg/actuation HFA aerosol inhaler (Flovent HFA) fluticasone propionate 50 1 spray intranasal BID 12/15/21 12/15/21 mcg/actuation nasal spray,suspension gabapentin 100 mg capsule 1 cap PO BEDTIME 12/15/21 12/15/21 loratadine 10 mg tablet 1 tab PO DAILY 12/15/21 12/15/21 lorazepam 0.5 mg tablet 1 tab PO BID 12/15/21 12/15/21 melatonin 3 mg tablet 9 mg PO BEDTIME 12/15/21 12/15/21 metformin 500 mg tablet 1 tab PO BID 12/15/21 12/15/21 omeprazole 20 mg capsule,delayed 1 cap PO DAILY 12/15/21 12/15/21 release sertraline 25 mg tablet 75 mg PO BEDTIME 12/15/21 12/15/21 simvastatin 40 mg tablet 1 tab PO BEDTIME 12/15/21 12/15/21 Allergies Allergy/AdvReac Type Severity Reaction Status Date / Time No Known Allergies Allergy Verified 12/15/21 15:20 Review of Systems Review of Systems: Yes Unobtainable due to mental condition and Unobtainable due to mental status [facility] Past Medical History Medical History (Updated 04/27/23 @ 14:56 by JARRET Alegria) Anemia Anxiety Bipolar 1 disorder COPD (chronic obstructive pulmonary disease) COVID-19 DDD (degenerative disc disease), lumbar DM (diabetes mellitus) Dyslipidemia GERD (gastroesophageal reflux disease) Hearing loss HTN (hypertension) Hypothyroid Major depressive disorder Seizure disorder TIA (transient ischemic attack) Vascular dementia Surgical History H/O right nephrectomy H/O: hysterectomy History of appendectomy Social History Social History Household Members: None Housing: Group Home Do you presently have visiting nurse or other home services: No Unable to assess alcohol history related to: Unable to respond Patient Tobacco Use Status: Tobacco use Unknown Advance Directives: No service: No Physical Exam ED Vital Signs: Vital Signs - 24 hr 04/27/23 11:59 04/27/23 12:12 04/27/23 14:11 Temperature 98.7 F Pulse Rate 98 98 106 H Respiratory Rate 18 18 18 Blood Pressure 152/88 H 152/88 H 147/101 H Pulse Oximetry 95 98 Oxygen Delivery Method Room Air Room Air BMI result Body Mass Index 22.5 Appearance: Sleeping comfortably, arouses to voice, No acute distress. Head: normocephalic, atraumatic. Eyes: Pupils equal, round and reactive to light. ENT: Pharynx normal. No tonsillar swelling or exudate. Neck: Normal inspection. Neck supple. CVS: Normal heart rate and rhythm. Pulses normal. Respiratory: No respiratory distress. Breath sounds normal. Abdomen: Soft and nontender. +BS x4 Skin: Skin warm and dry. Normal skin color. Normal skin turgor. No rashes. Extremities: No lower extremity edema. No joint swelling. Neuro/psych: Awake and alert, does not follow simple commands, nonverbal, attempting to speak with no phonation. moves all extremities spontaneously Course Reevaluation(s) Reevaluation #1: Patient tolerated right upper quadrant ultrasound after Zyprexa. Urinalysis still pending. Signed out to Jennyfer NEIL who will determine disposition. Time: 15:31 Medications Administered Discontinued Medications Generic Name Dose Route Start Last Admin Trade Name Tanvir PRN Reason Stop Dose Admin Olanzapine 5 mg 04/27/23 14:52 04/27/23 15:03 Olanzapine Odt 10 Mg Tab.Giseladis TRANSLINGU 04/27/23 14:53 5 mg ONCE ONE Administration Medical Decision Making Medical Decision Making MDM Narrative: 73-year-old female with a history of deafness, vascular dementia, seizure disorder 10 to the ER for evaluation of elevated heart rate, elevated blood pressure and ?not looking good? as per the staff from the nursing facility today. Patient with slight tachycardia on arrival. She is afebrile. She is difficult to examine, resists care. Her basic lab workup shows a mild leukocytosis with a WBC 12. Otherwise her labs are only remarkable for a an acute elevation in her alk-phos of almost 700. LFTs and T bili is normal. She slaps your hand away when you try to palpate her abdomen. No vomiting or diarrhea. Unable to obtain a urine sample due to agitation. Sublingual Zyprexa has been ordered and attempts to obtain urine sample and get a right upper quadrant ultrasound. Differential Diagnosis Differential Diagnoses: The differential diagnosis associated with the presentation includes Acute delirium, dementia, UTI, metabolic derangement, stroke, dehydration Admission/Observation Consideration of admission/observation: Escalation of care including admission/observation considered Lab Data [facility] Lab Attestation statement: I reviewed the patient's lab results. Mild leukocytosis and significant elevation of her alk-phos. No other LFT derangements. Hyperglycemia without anion gap. 04/27/23 13:33 04/27/23 13:33 Labs: Lab Results 04/27/23 04/27/23 04/27/23 Range/Units 13:33 13:33 13:33 WBC 12.0 H (4.8-10.8) X10*3/uL RBC 4.46 D (4.20-5.50) X10*6/uL Hgb 11.7 L D (12.0-16.0) g/dl Hct 38.0 D (37.0-47.0) % MCV 85.2 (80.0-98.0) fL MCH 26.2 L (27.0-33.0) pg MCHC 30.8 L (31.0-35.0) g/dl RDW 14.6 (11.0-16.0) % Plt Count 288 D (160-400) X10*3/uL MPV 10.2 (9.4-12.3) fL Immature Gran % (Auto) 0.3 (0.0-0.4) % Neut % (Auto) 79.6 H (45-73) % Lymph % (Auto) 10.8 L (20-40) % Oldham % (Auto) 6.9 (2-11) % Eos % (Auto) 1.5 (0-4) % Baso % (Auto) 0.9 (0-2) % Lymph # (Auto) 1.3 (1.2-4.9) X10*3/uL Oldham # (Auto) 0.8 (0.1-1.2) X10*3/uL Eos # (Auto) 0.2 (0.0-0.4) X10*3/uL Baso # (Auto) 0.1 (0.0-0.2) X10*3/uL Abs Immat Gran (auto) 0.04 H (0.00-0.03) X10*3/uL Absolute Neuts (auto) 9.5 H (2.0-8.3) x10*3/uL Absolute Nucleated RBC 0.000 (0.0-0.012) X10*3/uL Nucleated RBC % (auto) 0.0 (0.0-0.2) /100WBC VBG pH (7.32-7.43) VBG pCO2 mmHg VBG pO2 mmHg VBG HCO3 (22-26) mmol/L VBG O2 Saturation % VBG Base Excess mmol/L Sodium 142 (135-145) mmol/L Potassium 4.1 (3.3-5.1) mmol/L Chloride 107 (96-108) mmol/L Carbon Dioxide 23 (22-29) mmol/L Anion Gap 16 (12-20) BUN 25 H (9-16) mg/dL Creatinine 1.13 (0.5-1.4) mg/dL Estim Creat Clear Calc 40.5 Estimated GFR 47 Random Glucose 286 H (60-115) mg/dL Calcium 10.0 D (8.4-10.2) mg/dL Magnesium 2.2 (1.6-2.6) mg/dL Total Bilirubin 0.3 (0.0-1.0) mg/dL Direct Bilirubin 0.1 (0.0-0.5) mg/dL AST 31 (5-31) U/L ALT 35 H (0-31) U/L Alkaline Phosphatase 689 H (39-117) U/L Ammonia 20 (13-55) umol/L Total Protein 7.4 (6.5-8.0) g/dL Albumin 3.6 (3.5-5.0) g/dL TSH (0.32-4.0) uIU/mL 04/27/23 04/27/23 Range/Units 13:33 13:40 WBC (4.8-10.8) X10*3/uL RBC (4.20-5.50) X10*6/uL Hgb (12.0-16.0) g/dl Hct (37.0-47.0) % MCV (80.0-98.0) fL MCH (27.0-33.0) pg MCHC (31.0-35.0) g/dl RDW (11.0-16.0) % Plt Count (160-400) X10*3/uL MPV (9.4-12.3) fL Immature Gran % (Auto) (0.0-0.4) % Neut % (Auto) (45-73) % Lymph % (Auto) (20-40) % Oldham % (Auto) (2-11) % Eos % (Auto) (0-4) % Baso % (Auto) (0-2) % Lymph # (Auto) (1.2-4.9) X10*3/uL Oldham # (Auto) (0.1-1.2) X10*3/uL Eos # (Auto) (0.0-0.4) X10*3/uL Baso # (Auto) (0.0-0.2) X10*3/uL Abs Immat Gran (auto) (0.00-0.03) X10*3/uL Absolute Neuts (auto) (2.0-8.3) x10*3/uL Absolute Nucleated RBC (0.0-0.012) X10*3/uL Nucleated RBC % (auto) (0.0-0.2) /100WBC VBG pH 7.46 H (7.32-7.43) VBG pCO2 35 mmHg VBG pO2 43 mmHg VBG HCO3 26 (22-26) mmol/L VBG O2 Saturation 67.0 % VBG Base Excess 2.5 mmol/L Sodium (135-145) mmol/L Potassium (3.3-5.1) mmol/L Chloride (96-108) mmol/L Carbon Dioxide (22-29) mmol/L Anion Gap (12-20) BUN (9-16) mg/dL Creatinine (0.5-1.4) mg/dL Estim Creat Clear Calc Estimated GFR Random Glucose (60-115) mg/dL Calcium (8.4-10.2) mg/dL Magnesium (1.6-2.6) mg/dL Total Bilirubin (0.0-1.0) mg/dL Direct Bilirubin (0.0-0.5) mg/dL AST (5-31) U/L ALT (0-31) U/L Alkaline Phosphatase (39-117) U/L Ammonia (13-55) umol/L Total Protein (6.5-8.0) g/dL Albumin (3.5-5.0) g/dL TSH 1.31 (0.32-4.0) uIU/mL Independent Interpretation I performed an independent interpretation of an: EKG and Plain X-Ray Interpretation: CXR: no consolidations, no effusion, agree with radiologist's read EKG with normal sinus rhythm, ventricular rate 95 beats per minute, mild artifact present, QTC normal at 437. No ST segment elevations or depressions. Radiology Impression Discussion of test interpretation with radiology: I have reviewed the radiologist's reading. Radiologist Impression: XR chest 2V IMPRESSION: 1.? Bilateral low lung volumes. 2.? Slight accentuation of the pulmonary vasculature. 3.? Incomplete evaluation the bilateral lung apices though no large pneumothorax. 4.? Suggestion of a hiatal hernia. Independent Historian Clinical information obtained from an independent historian. History obtained from or confirmed by: EMS and Other (Staff at [facility]) External Record Review External record reviewed: Outpatient record, Prior outpatient labs and Prior outpatient radiology Tests considered The following testing was considered but not selected: CT scan of her head was considered however this seems to be her baseline mentation as per facility staff Prescription Management I considered prescription management with: Antibiotic Chronic Conditions Patient?s care impacted by: Diabetes, Hypertension and Other (Dementia, definite) Critical Care Time Critical Care Time Critical Care Time: Yes Total Critical Care Time: 39 Attestation: I have personally provided critical care time exclusive of time spent on separately billable procedures. Time includes review of lab data, radiology results, frequently evaluation of mental status and hemodynamic stability and monitoring for potential decompensation. Intervention performed as documented. Discharge Plan Discharge Clinical Impression: Alkaline phosphatase elevation, Agitation, Vascular dementia Patient Disposition: Still a Patient Prescriptions: No Action metformin 500 mg tablet 1 tab PO BID melatonin 3 mg tablet 9 mg PO BEDTIME simvastatin 40 mg tablet 1 tab PO BEDTIME lorazepam 0.5 mg tablet 1 tab PO BID ferrous sulfate 325 mg (65 mg iron) tablet 1 tab PO Q2D Rx Instructions: UNTIL 12/25/21 Flovent HFA 44 mcg/actuation HFA aerosol inhaler 2 puff inhalation BID sertraline 25 mg tablet 75 mg PO BEDTIME omeprazole 20 mg capsule,delayed release(DR/EC) 1 cap PO DAILY gabapentin 100 mg capsule 1 cap PO BEDTIME fluticasone propionate 50 mcg/actuation spray,suspension 1 spray intranasal BID divalproex 125 mg capsule, delayed rel sprinkle 125 mg PO BID Rx Instructions: AT 0900 AND 1400 divalproex 125 mg capsule, delayed rel sprinkle 375 mg PO BEDTIME loratadine 10 mg tablet 1 tab PO DAILY cholecalciferol (vitamin D3) 1,250 mcg (50,000 unit) Capsule 1,250 mcg PO QMONTH
[2023-04-27 12:12] VITALS: BP 152/88; PULSE 98; RESP 18; O2SAT 98
[2023-04-27 13:41] LABS: MANUAL DIFF FLAG NO
[2023-04-27 13:43] LABS: Basophils Absolute Auto 0.1 X10*3/uL (0.0-0.2); Basophils Percent Auto 0.9 % (0-2); Eosinophils Absolute Auto 0.2 X10*3/uL (0.0-0.4); Eosinophils Percent Auto 1.5 % (0-4); Hemoglobin 11.7 g/dl (12.0-16.0); Imm Gran Abs Auto 0.04 X10*3/uL (0.00-0.03); Imm Gran Pct Auto 0.3 % (0.0-0.4); Lymphocytes Absolute Auto 1.3 X10*3/uL (1.2-4.9); Lymphocytes Percent Auto 10.8 % (20-40); Mean Corpuscular HGB Conc 30.8 g/dl (31.0-35.0); Mean Corpuscular Hemoglobin 26.2 pg (27.0-33.0); Mean Corpuscular Volume 85.2 fL (80.0-98.0); Mean Platelet Volume 10.2 fL (9.4-12.3); Monocytes Absolute Auto 0.8 X10*3/uL (0.1-1.2); Monocytes Percent Auto 6.9 % (2-11); Neutrophils Absolute Auto 9.5 x10*3/uL (2.0-8.3); Neutrophils Percent Auto 79.6 % (45-73); Platelet Count 288 X10*3/uL (160-400); Red Blood Count 4.46 X10*6/uL (4.20-5.50); Red Cell Distribution Width 14.6 % (11.0-16.0)
[2023-04-27 13:46] LABS: Venous Blood Gas Refer to POC result
[2023-04-27 13:46] LABS: VBG Base Excess 2.5 mmol/L; VBG HCO3 26 mmol/L (22-26); VBG pCO2 35 mmHg; VBG pH 7.46 (7.32-7.43); VBG pO2 43 mmHg
[2023-04-27 13:51] LABS: Ammonia 20 umol/L (13-55)
[2023-04-27 14:03] LABS: Alanine Aminotransferase 35 U/L (0-31); Albumin Level 3.6 g/dL (3.5-5.0); Alkaline Phosphatase 689 U/L (39-117); Anion Gap 16 (12-20); Aspartate Amino Transferase 31 U/L (5-31); Bilirubin Direct 0.1 mg/dL (0.0-0.5); Bilirubin Total 0.3 mg/dL (0.0-1.0); Blood Urea Nitrogen 25 mg/dL (9-16); Carbon Dioxide 23 mmol/L (22-29); Chloride 107 mmol/L (96-108); Creatinine Clr Calc Pharmacy 40.5; Estimated Glomerular Filt Rate 47; Glucose Random 286 mg/dL (60-115); Magnesium 2.2 mg/dL (1.6-2.6); Potassium 4.1 mmol/L (3.3-5.1); Sodium 142 mmol/L (135-145); Total Protein 7.4 g/dL (6.5-8.0)
[2023-04-27 14:11] VITALS: BP 147/101; PULSE 106; RESP 18
[2023-04-27 14:19] LABS: TSH reflex Free T4 1.31 uIU/mL (0.32-4.0)
--- NOTE | 2023-04-27 14:32 | ECG_ITS ---
Test Reason : TACHY Blood Pressure : / mmHG Vent. Rate : 095 BPM Atrial Rate : 095 BPM P-R Int : 268 ms QRS Dur : 064 ms QT Int : 348 ms P-R-T Axes : 037 -19 067 degrees QTc Int : 437 ms Sinus rhythm with 1st degree A-V block Minimal voltage criteria for LVH, may be normal variant ( R in aVL ) Nonspecific T wave abnormality Abnormal ECG When compared with ECG of 15-DEC-2021 15:40, Vent. rate has increased BY 39 BPM Nonspecific T wave abnormality is now Present Referred By: Velma Irwin Electronically Signed By:KELSIE LUI
[2023-04-27] MEDS: OLANZapine ODT 10 MG TAB.RAPDIS 5 MG TRANSLINGU (15:03)
--- NOTE | 2023-04-27 15:08 | PC.NURSE ---
Attempt to straight cath unsuccessful- provider aware. Purewick in place
--- NOTE | 2023-04-27 16:55 | PC.NURSE ---
Upon adnisison patient noted to have redness to bilat groin areas, excoriation to buttocks, and patient attempting to itch vagina repeatedly. X 2 attempts to start IV un successful as patient is combative, provider aware.
[2023-04-27] MEDS: OLANZapine 10 MG VIAL 5 MG IM (17:01)
[2023-04-27] MEDS: 0.9 % Sodium Chloride 1,000 ML 999 ML IV (17:09)
[2023-04-27 18:14] VITALS: BP 102/68; PULSE 70; RESP 18; TEMP 36.7; O2SAT 97
[2023-04-27 18:29] LABS: Appearance Urine Cloudy; Color Urine Yellow; Glucose Urine UA Negative (Negative); Leukocyte Esterase Urine Large (3+) (Negative); Nitrite Urine Positive (Negative); Specific Gravity - Urine 1.015 (1.005-1.025); UMIC TRIGGER UACC YES; Urine Blood Trace (Negative); Urine Ketones Negative (Negative); Urine Protein Trace mg/dL (Neg-Trace)
[2023-04-27 18:38] LABS: Bacteria Urine 1+ (None Seen); Hyaline Casts Urine 0-2 /LPF (0-2); RBC Urine 0-2 /HPF (0-2); Squamous Epithelial Cell Urine 0-2 /HPF (0-2); UACC Culture Trigger YES; WBC Urine >50 /HPF (0-5)
[2023-04-27] MEDS: cefTRIAXone sodium 1 GM in 0.9 % Sodium Chloride 50 ML IV (18:46)
--- NOTE | 2023-04-27 19:05 | PC.NURSE ---
This RN spoke with and gave report to Ashley from [facility] regarding pt returning. Ambulance requested.
== END 2023-04-27 19:43 | disposition skilled nursing facility (03) ==
PROVIDERS: Physician Assistant; Emergency Provider Student in an Organized Health Care Education/Training Program; PCP Emergency Medicine
DX: N39.0 Urinary tract infection, site not specified (principal); B95.61 Methicillin susceptible Staphylococcus aureus infection as the cause of diseases classified elsewhere; F01.511 Vascular dementia, unspecified severity, with agitation; R74.8 Abnormal levels of other serum enzymes; K44.9 Diaphragmatic hernia without obstruction or gangrene; K59.00 Constipation, unspecified; E11.9 Type 2 diabetes mellitus without complications; I10 Essential (primary) hypertension; E78.5 Hyperlipidemia, unspecified; D64.9 Anemia, unspecified; Z79.899 Other long term (current) drug therapy; Z86.73 Personal history of transient ischemic attack (TIA), and cerebral infarction without residual deficits; Z79.84 Long term (current) use of oral hypoglycemic drugs
CPT/HCPCS: 36415; 71046; 74176; 76705; 80048; 80076; 81001; 82140; 82803; 83735; 84443; 85025; 87086; 87088; 87186; 93005; 96374; 99285; J0696